=== PATIENT | female | born 1970 | race Caucasian/White ===

== ENCOUNTER 2016-08-15 22:03 | Inpatient (IN) ==
--- NOTE | 2016-08-15 22:15 | Emergency Department Note ---
Disposition Clinical Impression: COPD (chronic obstructive pulmonary disease), Fever, Tachycardia, Hypoxemia, Abnormal chest xray, Obesity, Diabetes, Systemic inflammatory response syndrome (SIRS), Morbid obesity with BMI of 60.0-69.9, adult, Hypertension, HLD ( hyperlipidemia), Sepsis, Non-cardiac chest pain, Headache Disposition: Admitted As Inpatient Referrals: Unassigned,Provider [Non-Partnered Physician] - Forms: ED Satisfaction Letter General Adult HPI - General Chief complaint: ED Chest Pain Stated complaint: linda chest pain Time Seen by Provider: 08/15/16 22:14 Source: patient Limitations: no limitations - History of Present Illness HPI Narrative: 46-year-old female with a history of COPD reports to the emergency department concerned with possible pneumonia. She has had a fever and a cough and describes chest tightness like a band around her chest. She has a history of previous pneumonia. There is no history of ear pain runny nose or sore throat. She wears oxygen only at night 2 L. There is no history of acute leg swelling coughing of blood or syncope. The patient has no history of CAD or CHF , no history of PE DVT or cancer. Take she had a recent stress test which was negative. The patient has had abdominal pain vomiting diarrhea or acute back pain. She describes a generalized headache which was not sudden onset, no trouble walking talking hearing seeing or speaking no unilateral arm weakness or numbness, no slurred speech or confusion. No convulsions. The patient that she might have pneumonia again so she came to the emergency department. She is known to be type II diabetic, she states her blood sugars have been high. Pain Scale: 8 - Related Data Home Medications Medication Instructions Recorded Confirmed Acetaminophen/Butalbital/Caffe 1 tab PO TID 12/07/15 06/23/16 [Fioricet] BuPROPion SR (12 HR) [Wellbutrin 150 mg PO BID 12/07/15 06/23/16 SR] Furosemide [Lasix] 80 mg PO TID 12/07/15 06/23/16 Gabapentin [Neurontin] 600 mg PO TID 12/07/15 06/23/16 Ibuprofen [Motrin] 800 mg PO Q8HR 12/07/15 06/23/16 Levothyroxine [Synthroid] 50 mcg PO DAILY 12/07/15 06/23/16 Melatonin 5 mg PO HS 12/07/15 06/23/16 Omeprazole 40 mg PO DAILY 12/07/15 06/23/16 Potassium Chloride [K-Tab ER] 20 meq PO QID 12/07/15 06/23/16 Topiramate [Topamax] 200 mg PO BID 12/07/15 06/23/16 TraZODone 150 mg PO HS 12/07/15 06/23/16 Doxepin [Sinequan] 150 mg PO HS 04/20/16 06/23/16 Fluticasone/Salmeterol [Advair 1 puff IH BID 06/21/16 06/23/16 250-50 Diskus] Metformin [Glucophage] 500 mg PO BIDWM 06/21/16 06/23/16 Simvastatin [Zocor] 20 mg PO HS 06/21/16 06/23/16 Previous Rx's Medication Instructions Recorded Albuterol Sulfate [Albuterol 1 puff IH Q4H PRN 90 Days 04/22/16 Inhaler] OxyCODONE/APAP 5/325 [Percocet 1 each PO Q4HR PRN #45 tablet 06/21/16 5/325 MG] Allergies Allergy/AdvReac Type Severity Reaction Status Date / Time aspirin AdvReac Gastrointestinal Verified 08/15/16 22:07 Upset naproxen AdvReac Gastrointestinal Verified 08/15/16 22:07 Upset All systems ED: reviewed and negative except as stated. 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 Absent: scleral icterus, conjunctival injection, miosis, mydriasis - ENT ENT exam: normal exam, normal oropharynx, mucous membranes moist, TM's normal bilaterally, normal external ear exam - Neck Neck exam: Present: normal inspection, full ROM, trachea midline. Absent: tenderness - Chest Chest inspection: Present: symmetric chest wall rise. Absent: tenderness - Respiratory Respiratory exam: Present: normal lung sounds bilaterally. Absent: respiratory distress, accessory muscle use, prolonged expiratory phase - Cardiovascular Cardiovascular exam: Present: regular rate, tachycardia - Abdominal Exam Abdominal exam: Present: soft, Non-Tender, normal bowel sounds. Absent: tenderness, distention, guarding, rebound, rigidity, pulsatile mass - Extremities Exam Extremities exam: Present: normal inspection, full ROM, normal capillary refill. Absent: tenderness, pedal edema, joint swelling, calf tenderness - Expanded Lower Extremity Exam Lower leg exam: Absent: Homans' sign Neurovascular/Tendon exam: Present: normal capillary refill. Absent: motor deficit, sensory deficit, tendon deficit, extremity cold to touch, pallor - Back Exam Back exam: Present: normal inspection, full ROM. Absent: tenderness, CVA tenderness (R), CVA tenderness (L), vertebral tenderness - Neurological Exam Neurological exam: Present: alert, oriented X3, CN II-XII intact. Absent: motor sensory deficit - Psychiatric Psychiatric exam: Present: normal affect, normal mood - Skin Skin exam: Present: warm, dry, intact, normal color. Absent: rash, cyanosis, diaphoresis, erythema, pallor, mottled Course Vital Signs Temperature 101 F H 08/15/16 22:07 Pulse Rate 120 08/15/16 22:07 Respiratory Rate 20 08/15/16 22:07 Blood Pressure 119/76 08/15/16 22:07 O2 Sat by Pulse Oximetry 93 08/15/16 22:07 Temperature 101 F H 08/15/16 22:07 Pulse Rate 108 08/16/16 00:15 Respiratory Rate 16 08/16/16 00:15 Blood Pressure 122/84 08/16/16 00:15 O2 Sat by Pulse Oximetry 92 08/16/16 00:15 Oxygen Delivery Oxygen Delivery Room Air Medical Decision Making - [facility] Narrative Medical decision making narrative: The patient complains of a cough and generalized chest and rib pain, she is also febrile and tachycardic with an abnormal chest x-ray. The patient has been somewhat hypoxemic in the ED dropping down to 88% on room air, oxygen was supplied. She has known history of COPD and usually only wears oxygen at night. The patient has no personal history of coronary artery disease DVT PE or cancer. Based on the patient's fever, elevated white count, tachycardia and likely acute infectious pulmonary pathology, I believe she meets sepsis criteria. Blood cultures are sent and antibiotics were given IV access and IV fluids were given. Additional testing include flu swab, and CTA chest to evaluate further for potential pulmonic pathology or possible PE. The patient' s EKG shows a sinus tachycardia troponin is negative. Based on the patient's multiple comorbidities including age, obesity, COPD, hypertension, hyperlipidemia, junction with hypoxemia, fever, tachycardia, I thought it would be appropriate to admit the patient to the hospital for further evaluation. The patient is currently stable. She has a history of chronic recurrent cephalgia and describes a headache, there is no history of rapid onset headache , neck stiffness or rash convulsion or confusion. No neurologic defects are reported or noted. The patient displays no meningismus. I do not see an acute skin rash on the exposed surfaces in the ED. I think the most likely source of infection is pulmonic, her abdominal exam is benign, no acute skin lesions appreciated, I do not think the patient has meningitis. I reviewed the case with the hospitalist on-call who has accepted the patient to their care. The patient is currently stable pending admission to the hospital for further diagnostic evaluation and treatment. - Lab Data Lab results reviewed: Yes I reviewed the patient's lab results. Result diagrams: 08/15/16 22:29 08/15/16 22:29 Lab Results 08/15/16 08/15/16 08/15/16 Range/Units 22:29 22:29 22:29 WBC 19.0 H (4.3-11.1) K/mcL RBC 4.74 (3.82-4.97) M/mcL Hgb 13.4 (11.5-15.4) g/dL Hct 41.3 (35.3-44.9) % MCV 87.1 (83.0-100.0) fL MCH 28.3 (28.0-33.3) pg MCHC 32.4 (31.6-35.5) g/dL RDW 16.2 H (11.5-14.5) % Plt Count 322 (140-400) K/mcL MPV 10.1 (9.4-12.4) fL Immature Gran % 1.3 (0-4) % Seg Neutrophils % 76.6 % Lymphocytes % 15.9 % Monocytes % 5.0 % Eosinophils % 0.9 % Basophils % 0.3 % Neutrophils # 14.6 H (1.6-8.9) K/mcL Lymphocytes # 3.0 (0.6-4.6) K/mcL Monocytes # 1.0 (0.0-1.3) K/mcL Eosinophils # 0.2 (0.0-0.6) K/mcL Basophils # 0.1 (0.0-0.2) K/mcL PT 11.3 (9.4-12.1) Seconds INR 1.0 APTT 35.2 (26.0-36.0) Seconds Sodium (136-145) mEq/L Potassium (3.5-4.5) mEq/L Chloride (98-109) mEq/L Carbon Dioxide (19-29) mEq/L BUN (7-20) mg/dL Creatinine (0.57-1.11) mg/dL Est GFR ( Amer) (> 60) Est GFR (Non-Af Amer) (> 60) BUN/Creatinine Ratio (6-26) Glucose (70-99) mg/dL Calculated Osmolality (280-300) Lactic Acid (0.5-2.2) mmol/L Calcium (8.6-10.8) mg/dL Magnesium (1.6-2.6) mg/dL Total Bilirubin (0.2-1.2) mg/dL Direct Bilirubin (0.0-0.5) mg/dL Indirect Bilirubin (0.0-1.2) mg/dL AST (5-34) Units/L ALT (0-55) Units/L Alkaline Phosphatase (38-126) Units/L Troponin I (0-0.03) ng/mL B-Natriuretic Peptide < 10 (0-100) pg/mL Serum Total Protein (6.0-8.3) g/dL Albumin (3.5-5.0) g/dL Globulin (2.4-3.5) g/dL Albumin/Globulin Ratio (1.1-2.2) Lipase (8-78) Units/L Urine Color (Yellow) Urine Clarity (Clear) Urine pH (5.0-8.0) pH Units Ur Specific [place] (1.010-1.025) Urine Protein (Neg-Trace) mg/dL Urine Glucose (UA) (Normal) mg/dL Urine Ketones (Negative) mg/dL Urine Blood (Negative) Urine Nitrite (Negative) Urine Bilirubin (Negative) Urine Urobilinogen (Normal) mg/dL Ur Leukocyte Esterase (Negative) Ur Culture Indicated? (NO) 08/15/16 08/15/16 08/15/16 Range/Units 22:29 22:29 22:29 WBC (4.3-11.1) K/mcL RBC (3.82-4.97) M/mcL Hgb (11.5-15.4) g/dL Hct (35.3-44.9) % MCV (83.0-100.0) fL MCH (28.0-33.3) pg MCHC (31.6-35.5) g/dL RDW (11.5-14.5) % Plt Count (140-400) K/mcL MPV (9.4-12.4) fL Immature Gran % (0-4) % Seg Neutrophils % % Lymphocytes % % Monocytes % % Eosinophils % % Basophils % % Neutrophils # (1.6-8.9) K/mcL Lymphocytes # (0.6-4.6) K/mcL Monocytes # (0.0-1.3) K/mcL Eosinophils # (0.0-0.6) K/mcL Basophils # (0.0-0.2) K/mcL PT (9.4-12.1) Seconds INR APTT (26.0-36.0) Seconds Sodium 137 (136-145) mEq/L Potassium 3.6 (3.5-4.5) mEq/L Chloride 102 (98-109) mEq/L Carbon Dioxide 22 (19-29) mEq/L BUN 9 (7-20) mg/dL Creatinine 0.78 (0.57-1.11) mg/dL Est GFR ( Amer) > 60 (> 60) Est GFR (Non-Af Amer) > 60 (> 60) BUN/Creatinine Ratio 12 (6-26) Glucose 137 H (70-99) mg/dL Calculated Osmolality 285 (280-300) Lactic Acid 1.9 (0.5-2.2) mmol/L Calcium 9.4 (8.6-10.8) mg/dL Magnesium 1.9 (1.6-2.6) mg/dL Total Bilirubin 0.2 (0.2-1.2) mg/dL Direct Bilirubin 0.1 (0.0-0.5) mg/dL Indirect Bilirubin 0.1 (0.0-1.2) mg/dL AST 12 (5-34) Units/L ALT 23 (0-55) Units/L Alkaline Phosphatase 128 H (38-126) Units/L Troponin I 0.00 (0-0.03) ng/mL B-Natriuretic Peptide (0-100) pg/mL Serum Total Protein 7.1 (6.0-8.3) g/dL Albumin 3.1 L (3.5-5.0) g/dL Globulin 4.0 H (2.4-3.5) g/dL Albumin/Globulin Ratio 0.8 L (1.1-2.2) Lipase 37 (8-78) Units/L Urine Color (Yellow) Urine Clarity (Clear) Urine pH (5.0-8.0) pH Units Ur Specific [place] (1.010-1.025) Urine Protein (Neg-Trace) mg/dL Urine Glucose (UA) (Normal) mg/dL Urine Ketones (Negative) mg/dL Urine Blood (Negative) Urine Nitrite (Negative) Urine Bilirubin (Negative) Urine Urobilinogen (Normal) mg/dL Ur Leukocyte Esterase (Negative) Ur Culture Indicated? (NO) 08/15/16 Range/Units 22:47 WBC (4.3-11.1) K/mcL RBC (3.82-4.97) M/mcL Hgb (11.5-15.4) g/dL Hct (35.3-44.9) % MCV (83.0-100.0) fL MCH (28.0-33.3) pg MCHC (31.6-35.5) g/dL RDW (11.5-14.5) % Plt Count (140-400) K/mcL MPV (9.4-12.4) fL Immature Gran % (0-4) % Seg Neutrophils % % Lymphocytes % % Monocytes % % Eosinophils % % Basophils % % Neutrophils # (1.6-8.9) K/mcL Lymphocytes # (0.6-4.6) K/mcL Monocytes # (0.0-1.3) K/mcL Eosinophils # (0.0-0.6) K/mcL Basophils # (0.0-0.2) K/mcL PT (9.4-12.1) Seconds INR APTT (26.0-36.0) Seconds Sodium (136-145) mEq/L Potassium (3.5-4.5) mEq/L Chloride (98-109) mEq/L Carbon Dioxide (19-29) mEq/L BUN (7-20) mg/dL Creatinine (0.57-1.11) mg/dL Est GFR ( Amer) (> 60) Est GFR (Non-Af Amer) (> 60) BUN/Creatinine Ratio (6-26) Glucose (70-99) mg/dL Calculated Osmolality (280-300) Lactic Acid (0.5-2.2) mmol/L Calcium (8.6-10.8) mg/dL Magnesium (1.6-2.6) mg/dL Total Bilirubin (0.2-1.2) mg/dL Direct Bilirubin (0.0-0.5) mg/dL Indirect Bilirubin (0.0-1.2) mg/dL AST (5-34) Units/L ALT (0-55) Units/L Alkaline Phosphatase (38-126) Units/L Troponin I (0-0.03) ng/mL B-Natriuretic Peptide (0-100) pg/mL Serum Total Protein (6.0-8.3) g/dL Albumin (3.5-5.0) g/dL Globulin (2.4-3.5) g/dL Albumin/Globulin Ratio (1.1-2.2) Lipase (8-78) Units/L Urine Color Yellow (Yellow) Urine Clarity Clear (Clear) Urine pH 7.5 (5.0-8.0) pH Units Ur Specific [place] 1.015 (1.010-1.025) Urine Protein Negative (Neg-Trace) mg/dL Urine Glucose (UA) Normal (Normal) mg/dL Urine Ketones Negative (Negative) mg/dL Urine Blood Negative (Negative) Urine Nitrite Negative (Negative) Urine Bilirubin Negative (Negative) Urine Urobilinogen Normal (Normal) mg/dL Ur Leukocyte Esterase Negative (Negative) Ur Culture Indicated? NO (NO) - Radiology Data Radiology results reviewed: Yes I reviewed the patient's radiology results.
[2016-08-15] MEDS ORDERED: Ipratropium/Albuterol Neb 3 ML IH ONE (22:26)
[2016-08-15] MEDS ORDERED: methylPREDNISolone 125 MG/2 ML VIAL IVP ONE (22:26)
[2016-08-15 22:41] LABS: Basophils # 0.1 K/mcL (0.0-0.2); Basophils % 0.3 %; Eosinophils # 0.2 K/mcL (0.0-0.6); Eosinophils % 0.9 %; Hematocrit 41.3 % (35.3-44.9); Hemoglobin 13.4 g/dL (11.5-15.4); Immature Granulocytes % 1.3 % (0-4); Lymphocytes % 15.9 %; Mean Corpuscular HGB Conc 32.4 g/dL (31.6-35.5); Mean Corpuscular Hemoglobin 28.3 pg (28.0-33.3); Mean Corpuscular Volume 87.1 fL (83.0-100.0); Mean Platelet Volume 10.1 fL (9.4-12.4); Neutrophils # 14.6 K/mcL (1.6-8.9); Platelet Count 322 K/mcL (140-400); Red Blood Count 4.74 M/mcL (3.82-4.97); Red Cell Distribution Width 16.2 % (11.5-14.5); Segmented Neutrophils % 76.6 %
[2016-08-15] MEDS: 0.9 % Sodium Chloride 1,000 ML IVC SCH ×2 (22:47→23:20)
[2016-08-15 22:48] LABS: Prothrombin Time 11.3 Seconds (9.4-12.1)
[2016-08-15 22:51] LABS: Activated Partial Thrombo Time 35.2 Seconds (26.0-36.0)
[2016-08-15 22:56] LABS: Alanine Aminotransferase 23 Units/L (0-55); Albumin 3.1 g/dL (3.5-5.0); Albumin/Globulin Ratio 0.8 (1.1-2.2); Alkaline Phosphatase 128 Units/L (38-126); Aspartate Amino Transferase 12 Units/L (5-34); BUN/Creatinine Ratio 12 (6-26); Bilirubin,Direct 0.1 mg/dL (0.0-0.5); Bilirubin,Indirect 0.1 mg/dL (0.0-1.2); Bilirubin,Total 0.2 mg/dL (0.2-1.2); Blood Urea Nitrogen 9 mg/dL (7-20); Calcium 9.4 mg/dL (8.6-10.8); Carbon Dioxide 22 mEq/L (19-29); Chloride 102 mEq/L (98-109); Glucose 137 mg/dL (70-99); Lipase 37 Units/L (8-78); Magnesium 1.9 mg/dL (1.6-2.6); Osmolality,Calculated 285 (280-300); Potassium 3.6 mEq/L (3.5-4.5); Sodium 137 mEq/L (136-145); Total Protein 7.1 g/dL (6.0-8.3); eGFR For African Americans > 60 (> 60); eGFR For Non-African Americans > 60 (> 60)
[2016-08-15 23:01] LABS: Bilirubin,Urine Negative (Negative); Blood,Urine Negative (Negative); Clarity,Urine Clear (Clear); Color,Urine Yellow (Yellow); Glucose,Urine (UA) Normal (Normal); Ketones,Urine Negative (Negative); Leukocyte Esterase,Urine Negative (Negative); Nitrite,Urine Negative (Negative); PH,Urine 7.5 pH Units (5.0-8.0); Protein,Urine Negative (Neg-Trace); Specific Gravity,Urine 1.015 (1.010-1.025); Urobilinogen,Urine Normal (Normal)
[2016-08-16] MEDS ORDERED: Levofloxacin 750 MG/150 ML 750 MG/150 ML BAG IVPB ONE (00:13)
[2016-08-16] MEDS ORDERED: Ketorolac 30 MG/ML VIAL IVP PRN ×2 (01:46→04:11)
[2016-08-16] MEDS ORDERED: Ondansetron 4 MG/2 ML VIAL IVP PRN (01:46)
[2016-08-16] MEDS ORDERED: Acetaminophen 325 MG TABLET PO PRN (01:46)
[2016-08-16] MEDS ORDERED: 0.9 % Sodium Chloride 1,000 ML IVC SCH ×2 (02:00→12:39)
--- NOTE | 2016-08-16 02:08 | Internal Med History&Physical ---
<Ana Pyle - Last Filed: 08/16/16 03:50> Date of Encounter: 08/16/16 Time of Encounter: 01:00 Assessment and Plan (1) Sepsis Current visit: Yes Status: Acute - Fever (101), tachycardia (as high as 120) and leukocytosis (WBC 19) on initial presentation. - Likely secondary to trachobronchitis given the significant upper respiratory symptoms but negative imagings for pneumonia. Doubt other source of infection such as UTI or abdominal infection given negative UA and lack of other symptoms. - Blood cultures pending. - Will obtain sputum culture with gram stain. Also check respiratory infection panel and urine antigens for Legionella and S. pneumoniae. - Continue hydration with IV NS. - Continue levofloxacin for trachobronchitis. - Closely monitor. Qualifiers: Sepsis type: sepsis due to unspecified organism Qualified Code(s): A41.9 - Sepsis, unspecified organism (2) Acute tracheobronchitis Current visit: Yes Status: Acute - Significant shortness of breath and productive cough with brown sputum production. - CXR and CTA chest don't suggest pneumonia. - Patient does have leukocytosis (WBC 19.0) likely suggestive of underlying infection. - Will obtain sputum culture with gram stain. Also check respiratory infection panel and urine antigens for Legionella and S. pneumoniae. - Continue levofloxacin. - Continue to monitor. (3) Acute exacerbation of chronic obstructive pulmonary disease (COPD) Current visit: Yes Status: Acute - Likely precipitated by smoking and/or current trachobronchitis. - Continue Solu-Medrol, bronchodilators scheduled & prn and supplemental oxygen. - Continue to monitor. (4) Tobacco abuse Current visit: Yes Status: Chronic - Patient still smokes 1 & 1/2 packs per day. - Smoking cessation counseling - Start nicotine patch. (5) Diabetes Current visit: Yes Status: Chronic - Patient reports recently diagnosed diabetes and is taking metformin at home. - Switch to insulin sliding scale during her hospital stay. Qualifiers: Diabetes mellitus type: type 2 Diabetes mellitus complication status: with unspecified complications Diabetes mellitus fci insulin use: without fci use Qualified Code(s): E11.8 - Type 2 diabetes mellitus with unspecified complications (6) DVT prophylaxis Current visit: No Status: Acute - SQ heparin. Internal Medicine - H&P: HPI Chief complaint: shortness of breath, productive cough and fever Admitted From: Emergency Dept Plans for Post Hospital Care: Home History of present illness: Ms. Becerra is a 46 year old female with COPD on 2L home oxygen only at night, DM, hyperlipidemia and fibromyalgia. Patient presented with shortness of breath , productive cough with brown sputum, chest tightness and fever (as high as 102.8 at home) for 2-3 days. Patient had similar presentation around [place] last year and was hospitalized for pneumonia therefore patient was prompted to come to [place] ED for further evaluation. Patient describes the chest tightness as "wearing a very tight bra" surrounding her upper chest and below the breasts and it's aggravated by cough. Patient also has wheezes, dizziness and some palpitation. Patient denies syncope, nausea, vomiting, diarrhea, abdominal pain , dysuria, skin rash/itchiness. Patient denies recent travel or sick contact. Patient is full code. In ED, patient was noted to have fever 101, tachycardia and leukocytosis (WBC 19.0). Patient received 1L NS, Duoneb, Solu-Medrol and levofloxacin. Patient will be admitted for further evaluation and management. Past Med Surg Social Fam HX - Past Medical History Medical history: arthritis, asthma, COPD, diabetes, fibromyalgia, GERD, hyperlipidemia, hypertension, migraine, osteoporosis, thyroid disease, other Psychiatric history: anxiety, bipolar, depression, other - Past Surgical History Surgical History: cholecystectomy, hysterectomy, other (Ovarian cyst removal, right rotator cuff repair) - Social History Smoking Status: Current every day smoker Packs per day: 1.5 PPD since age 12 Smokeless Tobacco Status: No Alcohol use: none Drug use: none - Family History Sister Living Status: Still Living Hx Family Cardiac Disorders: Yes (DE) Hx Family Endocrine Disorder: Yes (DM) Father Living Status: Still Living Hx Family Cardiac Disorders: Yes (DE) Hx Family Respiratory Disorders: Yes Mother Living Status: Hx Family Cardiac Disorders: Yes (Heart disease) Hx Family Cancer: Yes (lung cancer) Internal Medicine - H&P: Meds Acetaminophen/Butalbital/Caffe [Fioricet] 1 tab PO TID 12/07/15 [History] BuPROPion SR (12 HR) [Wellbutrin SR] 150 mg PO BID 12/07/15 [History] Furosemide [Lasix] 80 mg PO TID 08/14/16 [History] Gabapentin [Neurontin] 600 mg PO TID 12/07/15 [History] Ibuprofen [Motrin] 800 mg PO Q8HR 12/07/15 [History] Levothyroxine [Synthroid] 50 mcg PO DAILY 12/07/15 [History] Melatonin 5 cap PO HS MDD 20 12/07/15 [History] Omeprazole 40 mg PO DAILY 12/07/15 [History] Potassium Chloride [K-Tab ER] 20 meq PO 6XD 12/07/15 [History] Topiramate [Topamax] 200 mg PO BID 12/07/15 [History] TraZODone 150 mg PO HS 12/07/15 [History] Doxepin [Sinequan] 150 mg PO HS 04/20/16 [History] Albuterol Sulfate [Albuterol Inhaler] 1 puff IH Q4H PRN 90 Days 04/22/16 [Rx] Fluticasone/Salmeterol [Advair 250-50 Diskus] 1 puff IH BID 06/21/16 [History] Metformin [Glucophage] 500 mg PO BIDWM 06/21/16 [History] Simvastatin [Zocor] 20 mg PO HS 06/21/16 [History] Allergies aspirin Adverse Reaction (Verified 08/15/16 22:07) Gastrointestinal Upset naproxen Adverse Reaction (Verified 08/15/16 22:07) Gastrointestinal Upset All Systems PM: A 10-system review of systems was performed and is negative for pertinent findings except as documented above in the HPI. - Constitutional Constitutional: fever(s), weight gain (Patient reports weight difference of 25 lb on two different scales with one week apart.), no anorexia - EENT Eyes: no change in vision Ears: no decreased hearing Nose, mouth and throat: no dysphagia, no odynophagia - Cardiovascular Cardiovascular ROS IM: lightheadedness, palpitations, no syncope - Respiratory Respiratory: as per HPI, cough, dyspnea, excessive phlegm production, change in phlegm color (Brown color), no hemoptysis - Gastrointestinal Gastrointestinal: no abdominal pain, no diarrhea, no hematochezia, no melena, no nausea, no vomiting - Genitourinary Genitourinary: no difficulty urinating, no dysuria, no hematuria - Musculoskeletal Musculoskeletal ROS IM: arthralgias (Chronic shoulder pain), no myalgias - Integumentary Integumentary IM: no pruritus, no rash - Neurological Neurological ROS: no focal weakness, no numbness, no tingling - Hematologic/Lymphatic Hematologic/Lymphatic: no easy bleeding, no easy bruising - Constitutional Vitals: Temp Pulse Resp BP Pulse Ox 101 F H 108 18 126/88 92 08/15/16 22:07 08/16/16 00:15 08/16/16 00:53 08/16/16 00:53 08/16/16 00:15 General appearance: Present: cooperative, A&O X 3, no acute distress, answers questions appropriately - Head Head exam: Present: atraumatic, normocephalic - Eye Eye exam: Present: EOMI, PERRL, conjuntiva pink, sclera anicteric - Neck Neck exam general surgery: Present: supple, trachea midline. Absent: lymphadenopathy - Respiratory Respiratory exam: Present: decreased breath sounds, wheezes. Absent: accessory muscle use, rales, rhonchi - Cardiovascular Cardiovascular exam: Present: +S1, +S2, tachycardia. Absent: diastolic murmur, gallop, rubs, systolic murmur - GI/Abdominal GI/Abdominal exam: Present: normal bowel sounds, soft, no peritoneal signs. Absent: tenderness - Extremities Exam Extremities exam: Present: pedal edema (Mild), warm, radial pulses palpable and symetrical. Absent: calf tenderness, cyanotic - Neurological Exam Neurological exam: Present: CN II-XII intact, oriented X3, no focal deficits. Absent: pronater drift, facial droop, speech deficit - Skin Skin exam: Present: dry, intact, warm Internal Med - H&P Results - Labs CBC & Chem 7: 08/15/16 22:29 08/15/16 22:29 Labs: Short CBC 08/15/16 Range/Units 22:29 WBC 19.0 H (4.3-11.1) K/mcL Hgb 13.4 (11.5-15.4) g/dL Hct 41.3 (35.3-44.9) % Plt Count 322 (140-400) K/mcL Neutrophils # 14.6 H (1.6-8.9) K/mcL BMP 08/15/16 Range/Units 22:29 Sodium 137 (136-145) mEq/L Potassium 3.6 (3.5-4.5) mEq/L Chloride 102 (98-109) mEq/L Carbon Dioxide 22 (19-29) mEq/L BUN 9 (7-20) mg/dL Creatinine 0.78 (0.57-1.11) mg/dL Glucose 137 H (70-99) mg/dL Calcium 9.4 (8.6-10.8) mg/dL Cardiac Enzymes 08/15/16 Range/Units 22:29 Troponin I 0.00 (0-0.03) ng/mL Liver Function 08/15/16 Range/Units 22:29 Total Bilirubin 0.2 (0.2-1.2) mg/dL Direct Bilirubin 0.1 (0.0-0.5) mg/dL AST 12 (5-34) Units/L ALT 23 (0-55) Units/L Alkaline Phosphatase 128 H (38-126) Units/L Albumin 3.1 L (3.5-5.0) g/dL Urine 08/15/16 Range/Units 22:47 Urine Color Yellow (Yellow) Urine Clarity Clear (Clear) Urine pH 7.5 (5.0-8.0) pH Units Ur Specific [place] 1.015 (1.010-1.025) Urine Protein Negative (Neg-Trace) mg/dL Urine Glucose (UA) Normal (Normal) mg/dL - EKG Data -: EKG Interpreted by Myself EKG shows normal: sinus rhythm Rate: tachycardia - EKG Data Prior EKG available for review: yes When compared to previous EKG: there is no significant change EKG comments: 08/16/16 03:57 HR 115, ID 150, QRS 82, sinus tachycardia, no significant ischemic change compared to prior EKG in 2016. - Impressions Impressions Chest X-Ray 08/15/16 23:21 IMPRESSION: Findings suggest congestive heart failure D/ / José Antonio Gonzalez MD / José Antonio Gonzalez MD Interpreting Provider: José Antonio Gonzalez MD Chest CTA 08/16/16 00:15 IMPRESSION: No evidence for pulmonary emboli. Small nonspecific perihilar adenopathy may be reactive in nature. D/ / Bala Potts MD / Bala Potts MD Interpreting Provider: Bala Potts MD <Jessica Gaspar - Last Filed: 08/16/16 04:41> Date of Encounter: 08/16/16 Internal Medicine - H&P: HPI History of present illness: Ms. Becerra is a 46 year old female All Systems PM: A 10-system review of systems was performed and is negative for pertinent findings except as documented above in the HPI. - Constitutional Vitals: Temp Pulse Resp BP Pulse Ox 98.7 F 103 21 113/71 93 08/16/16 02:14 08/16/16 02:14 08/16/16 02:14 08/16/16 02:14 08/16/16 02:14 Internal Med - H&P Results - Labs CBC & Chem 7: 08/15/16 22:29 08/15/16 22:29 - Attending Attestation I performed history and physical examination of the patient and discussed management with resident/Forklift Mechanic. I reviewed the resident/ Interns note and agree with the documented findings and plan of care. 46 Y/F with h/o COPD, current smoker; chronic resp failure on home O2 at night. Presents with shortness of breath, cough with yellow sputum. Fever with temp of 102F at home. She reports that she has bra that is smaller for her size and is causing pressure / pain around the chest, which is worse on coughing. O/E: Bilateral expiratory wheeze; cardiac: Regular rate and rhythm; abdomen soft and nontender. EKG personally reviewed by me shows sinus tachycardia with heart rate of 115. Chest x-ray and CT scan of the chest were personally reviewed by me. No evidence of pneumonia. Labs show WBC of 19; [id number]. Urinalysis is negative for UTI. A/P: Acute tracheobronchitis/acute exacerbation of COPD/sepsis/acute/ chronic respiratory failure: Treated with bronchodilators, Solu-Medrol, levofloxacin, IV fluids. Chest pain is non cardiac.
[2016-08-16] MEDS ORDERED: *HR* Dextrose 50 % in Water (Syg) 50 ML SYRINGE IVP PRN (02:34)
[2016-08-16] MEDS ORDERED: Dextrose Gel 15 GM PO PRN ×2 (02:34)
[2016-08-16] MEDS ORDERED: D5% in Water 1,000 ML IVC PRN (02:34)
[2016-08-16] MEDS ORDERED: Acetaminophen/Butalbital/CaffeineTABLET PO PRN ×2 (03:48→12:53)
[2016-08-16] MEDS ORDERED: Ipratropium/Albuterol Neb 3 ML IH PRN (04:08)
[2016-08-16] MEDS ORDERED: Albuterol 2.5 MG/3 ML NEBULIZER IH PRN (04:09)
[2016-08-16] MEDS ORDERED: Ipratropium/Albuterol Neb 3 ML IH SCH (04:15)
[2016-08-16] MEDS: Ipratropium/Albuterol Neb 3 ML IH SCH ×4 (04:52→19:25)
[2016-08-16] MEDS: *HR* Heparin 5,000 UNIT/ML VIAL SQ SCH ×3 (05:37→21:24)
[2016-08-16 05:38] LABS: Basophils # 0.1 K/mcL (0.0-0.2); Basophils % 0.3 %; Eosinophils % 0.1 %; Hematocrit 40.2 % (35.3-44.9); Immature Granulocytes % 1.6 % (0-4); Lymphocytes # 1.1 K/mcL (0.6-4.6); Lymphocytes % 6.2 %; Mean Corpuscular HGB Conc 32.3 g/dL (31.6-35.5); Mean Corpuscular Volume 89.7 fL (83.0-100.0); Mean Platelet Volume 10.7 fL (9.4-12.4); Monocytes # 0.3 K/mcL (0.0-1.3); Monocytes % 1.5 %; Neutrophils # 15.6 K/mcL (1.6-8.9); Platelet Count 319 K/mcL (140-400); Red Blood Count 4.48 M/mcL (3.82-4.97); Red Cell Distribution Width 16.7 % (11.5-14.5); Segmented Neutrophils % 90.3 %
[2016-08-16 05:43] LABS: BUN/Creatinine Ratio 11 (6-26); Blood Urea Nitrogen 8 mg/dL (7-20); Calcium 8.9 mg/dL (8.6-10.8); Carbon Dioxide 18 mEq/L (19-29); Chloride 105 mEq/L (98-109); Glucose 229 mg/dL (70-99); Osmolality,Calculated 288 (280-300); Potassium 3.8 mEq/L (3.5-4.5); Sodium 136 mEq/L (136-145); eGFR For African Americans > 60 (> 60); eGFR For Non-African Americans > 60 (> 60)
[2016-08-16] MEDS ORDERED: MethylPREDNISolone 40 MG/ML VIAL IVP SCH (08:00)
[2016-08-16] MEDS: Nicotine 21 MG PATCH.TD24 TD SCH (08:15)
[2016-08-16] MEDS: Insulin LISPRO 300 UNITS/3 ML VIAL SQ SCH ×4 (08:30→21:22)
[2016-08-16] MEDS ORDERED: predniSONE 20 MG TABLET PO SCH (09:00)
[2016-08-16] MEDS: Gabapentin 300 MG CAPSULE PO SCH ×3 (11:20→21:17)
[2016-08-16] MEDS: Topiramate 100 MG TABLET PO SCH ×2 (11:20→21:19)
[2016-08-16] MEDS: BuPROPion SR (12 HR) 150 MG TABLET PO SCH ×2 (11:21→21:19)
[2016-08-16] MEDS: Nystatin POWDER 30 GM BOTTLE TP SCH ×3 (11:26→21:24)
[2016-08-16] MEDS ORDERED: Acetaminophen/Butalbital/CaffeineTABLET PO SCH (11:45)
[2016-08-16] MEDS: Acetaminophen/Butalbital/CaffeineTABLET PO SCH ×2 (15:02→21:16)
--- NOTE | 2016-08-16 19:52 | Electrocardiograph Report ---
[address] [address] Test Date: 2016-08-15 Pat Name: Sarah Becerra Department: 105 Room: 3A33 Gender: F Etl Bi Developer: CRISTIANO : 1970 Requested By: Rogerio Remy Order Number: [id number] Reading MD: Reji Jack MD Measurements Intervals [place] Rate: 115 P: 55 VT: 150 QRS: 65 QRSD: 82 T: 35 QT: 281 QTc: 349 Interpretive Statements SINUS TACHYCARDIA LEFT ATRIAL ENLARGEMENT LOW QRS VOLTAGE IN PRECORDIAL LEADS Electronically Signed On 08-16-2016 19:50:03 EDT by Reji Jack MD
[2016-08-16] MEDS: Melatonin 3 MG TABLET PO SCH (21:17)
[2016-08-16] MEDS: traZODone 50 MG TABLET PO SCH (21:19)
[2016-08-16] MEDS: Albuterol 2.5 MG/3 ML NEBULIZER IH PRN (21:35)
[2016-08-16] MEDS ORDERED: Levofloxacin 750 MG/150 ML 750 MG/150 ML BAG IVPB SCH (23:55)
[2016-08-17] MEDS: Ipratropium/Albuterol Neb 3 ML IH SCH ×7 (00:47→20:14)
[2016-08-17] MEDS ORDERED: traMADol 50 MG TABLET PO ONE ×2 (03:29→11:47)
[2016-08-17 05:00] LABS: Basophils % 0.3 %; Eosinophils # 0.1 K/mcL (0.0-0.6); Eosinophils % 0.5 %; Hematocrit 34.6 % (35.3-44.9); Immature Granulocytes % 2.4 % (0-4); Lymphocytes # 4.2 K/mcL (0.6-4.6); Lymphocytes % 31.5 %; Mean Corpuscular HGB Conc 31.8 g/dL (31.6-35.5); Mean Corpuscular Hemoglobin 28.6 pg (28.0-33.3); Mean Corpuscular Volume 89.9 fL (83.0-100.0); Mean Platelet Volume 10.7 fL (9.4-12.4); Monocytes # 0.9 K/mcL (0.0-1.3); Neutrophils # 7.7 K/mcL (1.6-8.9); Platelet Count 285 K/mcL (140-400); Red Blood Count 3.85 M/mcL (3.82-4.97); Red Cell Distribution Width 16.8 % (11.5-14.5); Segmented Neutrophils % 58.3 %
[2016-08-17 05:10] LABS: BUN/Creatinine Ratio 20 (6-26); Blood Urea Nitrogen 14 mg/dL (7-20); Calcium 8.7 mg/dL (8.6-10.8); Carbon Dioxide 24 mEq/L (19-29); Chloride 110 mEq/L (98-109); Glucose 141 mg/dL (70-99); Osmolality,Calculated 297 (280-300); Potassium 3.6 mEq/L (3.5-4.5); Sodium 142 mEq/L (136-145); eGFR For African Americans > 60 (> 60); eGFR For Non-African Americans > 60 (> 60)
[2016-08-17] MEDS: Albuterol 2.5 MG/3 ML NEBULIZER IH PRN (05:38)
[2016-08-17] MEDS: *HR* Heparin 5,000 UNIT/ML VIAL SQ SCH ×3 (06:23→22:24)
[2016-08-17] MEDS: Acetaminophen/Butalbital/CaffeineTABLET PO SCH ×3 (07:58→22:21)
[2016-08-17] MEDS: Gabapentin 300 MG CAPSULE PO SCH ×3 (07:58→22:22)
[2016-08-17] MEDS: Nicotine 21 MG PATCH.TD24 TD SCH (07:59)
[2016-08-17] MEDS: BuPROPion SR (12 HR) 150 MG TABLET PO SCH ×2 (07:59→22:23)
[2016-08-17] MEDS: Topiramate 100 MG TABLET PO SCH ×2 (07:59→22:22)
[2016-08-17] MEDS: Insulin LISPRO 300 UNITS/3 ML VIAL SQ SCH ×4 (08:01→22:50)
[2016-08-17] MEDS ORDERED: MethylPREDNISolone 40 MG/ML VIAL IVP SCH (09:00)
--- NOTE | 2016-08-17 11:46 | Internal Med Progress Note ---
<ValdezHerminia Aldair - Last Filed: 08/17/16 17:18> Date of Encounter: 08/17/16 Time of Encounter: 10:45 - Assessment and plan (1) Sepsis Current Visit: Yes Status: Acute Assessment and plan: Patient is clinically improving Wheezing is still present today Leukocytosis decreased to 13.2 from 17.2 yesterday Patient met criteria for sepsis upon admission Fever (101), tachycardia (120), and leukocytosis (WBC 19) CXR negative for acute process Blood cultures 08/15/16 negative to this point Legionella and S. pneumonia antigens negative Qualifiers: Sepsis type: sepsis due to unspecified organism Qualified Code(s): A41.9 - Sepsis, unspecified organism (2) Acute and chronic respiratory failure with hypoxia Current Visit: No Status: Acute Assessment and plan: Patient with known history of COPD Improving clinically Repeat CXR today demonstrates no acute process Will stop Solu-medrol today. Start prednisone 40mg po. Continue scheduled nebs Continue Levaquin (day#2) Continue supplemental O2 Will perform nocturnal oximetry tonight (3) Acute exacerbation of chronic obstructive pulmonary disease (COPD) Current Visit: Yes Status: Acute Assessment and plan: Continue plan as above (4) Diabetes mellitus type 2 in obese Current Visit: Yes Status: Acute Assessment and plan: Insulin medium-dose SS correction Monitor closely (5) Tobacco abuse Current Visit: Yes Status: Chronic Assessment and plan: Nicoderm TD Smoking cessation discussed with patient and her (6) DVT prophylaxis Current Visit: No Status: Acute Assessment and plan: Heparin TID - Subjective Interval history: Patient upset this morning because, she states, she did not get awakened from sleep to have 2am breathing treatment. Patient continues to have wheezing, dyspnea, and chest pressure. She is angry that she complained of pain in her left side, but has only received toradol for the pain. Patient did have an episode of hypoxemia and tachycardia at approximately 05:00. - Constitutional Vitals: Temp Pulse Resp BP Pulse Ox 97.9 F 96 16 138/73 94 08/17/16 11:02 08/17/16 11:02 08/17/16 11:02 08/17/16 11:02 08/17/16 11:02 General appearance: Present: cooperative, A&O X 3, morbidly obese, no acute distress, answers questions appropriately - Head Head exam: Present: atraumatic, normocephalic - Eye Eye exam: Present: EOMI, PERRL, conjuntiva pink, sclera anicteric - Neck Neck exam general surgery: Present: supple, trachea midline - Respiratory Respiratory exam: Present: chest wall tenderness (To left chest), prolonged expiratory phase, wheezes (diffuse wheezing in all lung andres). Absent: accessory muscle use, rales, rhonchi Additional comments: Patient speaking in short sentences and taking quick breaths between words. - Cardiovascular Cardiovascular exam: Present: RRR, +S1, +S2. Absent: diastolic murmur, gallop, rubs, systolic murmur - GI/Abdominal GI/Abdominal exam: Present: normal bowel sounds, soft, no peritoneal signs. Absent: distended, tenderness - Extremities Exam Extremities exam: Present: pedal edema (1+ pedal edema unchanged from yesterday) , warm, radial pulses palpable and symetrical. Absent: calf tenderness, cyanotic - Neurological Exam Neurological exam: Present: CN II-XII intact, oriented X3. Absent: facial droop , speech deficit - Skin Skin exam: Present: dry, intact Internal Medicine: Result - Labs CBC & Chem 7: 08/17/16 04:03 08/17/16 04:03 Labs: Short CBC 08/17/16 Range/Units 04:03 WBC 13.2 H (4.3-11.1) K/mcL Hgb 11.0 L D (11.5-15.4) g/dL Hct 34.6 L (35.3-44.9) % Plt Count 285 (140-400) K/mcL Neutrophils # 7.7 (1.6-8.9) K/mcL BMP 08/17/16 04:03 Sodium 142 Potassium 3.6 Chloride 110 H Carbon Dioxide 24 BUN 14 Creatinine 0.69 Glucose 141 H Calcium 8.7 Cardiac Enzymes 08/17/16 Range/Units 10:49 Troponin I 0.00 (0-0.03) ng/mL - ABG Interpretation ABG results: PT/INR, D-dimer PT 11.3 Seconds (9.4-12.1) 08/15/16 22:29 - Impressions Impressions Chest X-Ray 08/17/16 10:18 IMPRESSION: 1. Emphysema. 2. No focal lung infiltrate. D/ / 08/17/2016 11:16:58 Morgan Monte MD / alla Interpreting Provider: Morgan Monte MD Consult Discharge Plan - Plan Referrals: Juan Edgar DO [Primary Care Provider] - <Hernan Julien - Last Filed: 08/17/16 18:31> Date of Encounter: 08/17/16 - Constitutional Vitals: Temp Pulse Resp BP Pulse Ox 98.1 F 89 18 125/75 94 08/17/16 14:49 08/17/16 14:49 08/17/16 16:58 08/17/16 14:49 08/17/16 16:58 Internal Medicine: Result - Labs CBC & Chem 7: 08/17/16 04:03 08/17/16 04:03 Labs: Short CBC 08/17/16 Range/Units 04:03 WBC 13.2 H (4.3-11.1) K/mcL Hgb 11.0 L D (11.5-15.4) g/dL Hct 34.6 L (35.3-44.9) % Plt Count 285 (140-400) K/mcL Neutrophils # 7.7 (1.6-8.9) K/mcL BMP 08/17/16 04:03 Sodium 142 Potassium 3.6 Chloride 110 H Carbon Dioxide 24 BUN 14 Creatinine 0.69 Glucose 141 H Calcium 8.7 Cardiac Enzymes 08/17/16 Range/Units 10:49 Troponin I 0.00 (0-0.03) ng/mL - ABG Interpretation ABG results: PT/INR, D-dimer PT 11.3 Seconds (9.4-12.1) 08/15/16 22:29 - Impressions Impressions Chest X-Ray 08/17/16 10:18 IMPRESSION: 1. Emphysema. 2. No focal lung infiltrate. D/ / 08/17/2016 11:16:58 Morgan Monte MD / alla Interpreting Provider: Morgan Monte MD - Attending Attestation I examined this patient and my medical decision-making was reviewed with the Resident Physician, Dr Herminia Valdez. I agree with the documented findings, disposition and treatment plan as described except to the extent set forth below. On exam she is in no acute distress heart is regular S1-S2. Lungs are with diminished bilateral breath sounds with no adventitious sounds. Abdomen is obese and soft. I have discussed smoking cessation with her and I emphasized the benefits of quitting smoking. We will explore the possibility of nicotine replacement therapy on discharge. Check ambulatory oxygen saturation on room air to determine if she qualifies for continuous home oxygen. We will switch to oral steroids and antibiotics. Plan for discharge tomorrow if she continues to improve.
[2016-08-17] MEDS: *HR* OxyCODONE Immed Rel 5 MG TABLET PO PRN ×2 (15:16→22:23)
[2016-08-17] MEDS: Albuterol 2.5 MG/3 ML NEBULIZER IH SCH ×2 (17:01→20:21)
[2016-08-17] MEDS: Nystatin POWDER 30 GM BOTTLE TP SCH ×3 (18:40→22:54)
[2016-08-17] MEDS: Melatonin 3 MG TABLET PO SCH (22:23)
[2016-08-17] MEDS: traZODone 50 MG TABLET PO SCH (22:23)
[2016-08-18] MEDS: Ipratropium/Albuterol Neb 3 ML IH SCH ×4 (00:16→11:10)
[2016-08-18] MEDS: Albuterol 2.5 MG/3 ML NEBULIZER IH SCH ×4 (00:18→11:10)
[2016-08-18 04:24] LABS: Basophils # 0.1 K/mcL (0.0-0.2); Basophils % 0.9 %; Eosinophils # 0.1 K/mcL (0.0-0.6); Eosinophils % 0.8 %; Hematocrit 35.1 % (35.3-44.9); Hemoglobin 11.1 g/dL (11.5-15.4); Immature Granulocytes % 4.1 % (0-4); Lymphocytes # 4.4 K/mcL (0.6-4.6); Mean Corpuscular HGB Conc 31.6 g/dL (31.6-35.5); Mean Corpuscular Hemoglobin 28.3 pg (28.0-33.3); Mean Corpuscular Volume 89.5 fL (83.0-100.0); Mean Platelet Volume 9.9 fL (9.4-12.4); Monocytes # 0.9 K/mcL (0.0-1.3); Monocytes % 6.9 %; Neutrophils # 6.6 K/mcL (1.6-8.9); Platelet Count 297 K/mcL (140-400); Red Blood Count 3.92 M/mcL (3.82-4.97); Segmented Neutrophils % 52.3 %
[2016-08-18] MEDS: *HR* OxyCODONE Immed Rel 5 MG TABLET PO PRN ×2 (04:36→10:31)
[2016-08-18 04:56] LABS: BUN/Creatinine Ratio 24 (6-26); Blood Urea Nitrogen 17 mg/dL (7-20); Calcium 8.8 mg/dL (8.6-10.8); Carbon Dioxide 23 mEq/L (19-29); Chloride 110 mEq/L (98-109); Glucose 108 mg/dL (70-99); Osmolality,Calculated 294 (280-300); Potassium 3.9 mEq/L (3.5-4.5); Sodium 141 mEq/L (136-145); eGFR For African Americans > 60 (> 60); eGFR For Non-African Americans > 60 (> 60)
[2016-08-18] MEDS: *HR* Heparin 5,000 UNIT/ML VIAL SQ SCH (06:44)
[2016-08-18 07:30] VITALS: BP 117/72
[2016-08-18] MEDS: Nicotine 21 MG PATCH.TD24 TD SCH (08:16)
[2016-08-18] MEDS: BuPROPion SR (12 HR) 150 MG TABLET PO SCH (08:16)
[2016-08-18] MEDS: Gabapentin 300 MG CAPSULE PO SCH (08:17)
[2016-08-18] MEDS: Acetaminophen/Butalbital/CaffeineTABLET PO SCH (08:17)
[2016-08-18] MEDS: Topiramate 100 MG TABLET PO SCH (08:17)
[2016-08-18] MEDS: Insulin LISPRO 300 UNITS/3 ML VIAL SQ SCH (08:18)
[2016-08-18] MEDS ORDERED: predniSONE 20 MG TABLET PO SCH (09:00)
[2016-08-18] MEDS ORDERED: levoFLOXacin 750 MG TABLET PO SCH (09:00)
--- NOTE | 2016-08-18 09:18 | Discharge Summary ---
<Herminia Valdez - Last Filed: 08/18/16 08:53> Date of Encounter: 08/18/16 Time of Encounter: 08:53 - Discharge Diagnosis (1) Sepsis Priority: Primary Status: Acute Qualifiers: Sepsis type: sepsis due to unspecified organism Qualified Code(s): A41.9 - Sepsis, unspecified organism (2) Acute and chronic respiratory failure with hypoxia Priority: Primary Status: Acute (3) Acute exacerbation of chronic obstructive pulmonary disease (COPD) Priority: Primary Status: Acute (4) Diabetes mellitus type 2 in obese Priority: Secondary Status: Chronic (5) Tobacco abuse Priority: Secondary Status: Chronic (6) DVT prophylaxis Priority: Secondary Status: Acute - Discharge Medications Prescriptions: Ipratropium/Albuterol Neb [Duoneb] 3 ml IH [id number] 10 Days Doxycycline 100 mg PO BID #14 capsule Fluconazole [Diflucan] 150 mg PO DAILY #1 tab GuaiFENesin ER [Mucinex] 600 mg PO BID #10 tbbp.12hr Miscellaneous Medical Supply [Attachment Set] 1 each MC AD #1 miscell Miscellaneous Medical Supply [Attachment Set] 1 each MC AD #1 miscell Nicotine Patch [Nicoderm] 21 mg TD DAILY #30 patch.[id number] Nystatin Cream [Mycostatin Cream] 1 appl TP BID #1 tube PredniSONE [Prednisone] 10 mg PO AD #30 tab.ds.pk Tramadol HCl [Ultram] 50 mg PO DAILY #5 tab Home Medications: Acetaminophen/Butalbital/Caffe [Fioricet] 1 - 2 tab PO TID 12/07/15 [History] BuPROPion SR (12 HR) [Wellbutrin SR] 150 mg PO BID 12/07/15 [History] Furosemide [Lasix] 80 mg PO TID 12/07/15 [History] Gabapentin [Neurontin] 600 mg PO TID 12/07/15 [History] Ibuprofen [Motrin] 800 mg PO Q8HR 12/07/15 [History] Levothyroxine [Synthroid] 50 mcg PO DAILY 12/07/15 [History] Melatonin 5 cap PO HS MDD 20 12/07/15 [History] Omeprazole 40 mg PO DAILY 12/07/15 [History] Potassium Chloride [K-Tab ER] 20 meq PO QID 12/07/15 [History] Topiramate [Topamax] 200 mg PO BID 12/07/15 [History] TraZODone 150 mg PO HS 12/07/15 [History] Doxepin [Sinequan] 25 mg PO HS 04/20/16 [History] Albuterol Sulfate [Albuterol Inhaler] 1 puff IH Q4H PRN 90 Days 04/22/16 [Rx] Fluticasone/Salmeterol [Advair 250-50 Diskus] 1 puff IH BID 06/21/16 [History] Metformin [Glucophage] 500 mg PO BIDWM 06/21/16 [History] Simvastatin [Zocor] 20 mg PO HS 06/21/16 [History] Acetaminophen/Butalbital/Caffe [Fioricet] 2 each PO TID tablet 08/18/16 [Rx] Doxycycline 100 mg PO BID #14 capsule 08/18/16 [Rx] Fluconazole [Diflucan] 150 mg PO DAILY #1 tab 08/18/16 [Rx] GuaiFENesin ER [Mucinex] 600 mg PO BID #10 tbbp.12hr 08/18/16 [Rx] Ipratropium/Albuterol Neb [Duoneb] 3 ml IH [id number] 10 Days 08/18/16 [Rx] Miscellaneous Medical Supply [Attachment Set] 1 each MC AD #1 miscell 08/18/16 [ Rx] Miscellaneous Medical Supply [Attachment Set] 1 each MC AD #1 miscell 08/18/16 [ Rx] Nicotine Patch [Nicoderm] 21 mg TD DAILY #30 patch.td24 08/18/16 [Rx] Nystatin Cream [Mycostatin Cream] 1 appl TP BID #1 tube 08/18/16 [Rx] Nystatin POWDER [Nystop] 1 appl TP TID bottle 08/18/16 [Rx] OxyCODONE Immed Rel [Roxicodone 5 MG] 5 mg PO Q6HR PRN #30 tablet 08/18/16 [Rx] PredniSONE [Prednisone] 10 mg PO AD #30 tab.ds.pk 08/18/16 [Rx] Tramadol HCl [Ultram] 50 mg PO DAILY #5 tab 08/18/16 [Rx] Allergies/Adverse Reactions: Allergies aspirin Adverse Reaction (Verified 08/15/16 22:07) Gastrointestinal Upset naproxen Adverse Reaction (Verified 08/15/16 22:07) Gastrointestinal Upset Procedures/tests Complete & Pending: Procedures Performed prior 72 hours Category Date Time Status ECG 12 lead ECG [ECG] Urgent Y 08/17/16 10:17 Ordered Date of admission: 08/16/16 04:12 Primary care physician: Juan Edgar, Consults: 08/17/16 17:14 Consult to Respiratory Therapy [CONS] Routine Reason for Consult: Nocturnal Pulse oximetry. Please keep patient on 2L O2 during measurment. Call Completed: No Discharging clinician: Hernan Julien Anticipated date of discharge: 08/18/16 - Patient Status Disposition: Home, Self-Care Condition: Fair Functional capacity at discharge: independent ambulation Overall status at discharge: patient is progressing back to baseline - Discharge Instructions Instructions: Using Oxygen at Home (DC), Chronic Obstructive Pulmonary Disease (DC), Hypoxemia (DC) Follow Up With: Juan Edgar, DO [Primary Care Provider] - 08/25/16 11:00 am - Diet and Activity Activity: increase activity as tolerated Diet: diabetic diet Hospital course: Ms. Becerra is a 46 year old female with COPD on 2L home oxygen only at night. Past medical history is significant for DM, hyperlipidemia, fibromyalgia, smoking use disorder. Patient presented with 2-3 day history of shortness of breath, cough productive of brown sputum, chest tightness, subjective fever (as high as 102.8 at home). Upon presentation to hospital, patient met Sepsis criteria as she was found to have fever (101), tachycardia (as high as 120) and leukocytosis (WBC 19). CXR and CTA were negative for acute cardiopulmonary process. Patient was treated for tracheobronchitis and COPD exacerbation with steroids, duonebs, Levaquin, O2 supplementation. Blood cultures 08/15/16 are negative to date. Patient was negative for legionella and Strep. pneumoniae antigens. For the COPD/tracheobronchitis, patient will be discharged to home with steroids, duonebs, Doxycycline, Mucinex, nebulizer machine, CPAP machine. During her hospital stay, patient was found to need CPAP due to COPD exacerbation. She has home sleep study scheduled tonight with an outside facility in [place], [place]. Also, hospitalization, patient complained of "sore" on her buttock that is concerning for developing abscess. Patient will be treated as an outpatient with Doxycycline for 7 days as this will cover for possible MRSA as well as COPD exacerbation/tracheobronchitis. Patient is being given Nicoderm TD patches for smoking cessation. Patient and her were encouraged repeatedly to stop smoking. The risks of continued smoking abuse were discussed. Patient verbalized understanding. Patient was also encouraged to begin a diet and exercise program. Patient Patient is clinically improved at this time and is stable for discharge. She will follow up with her PCP in 7 days. Time spent discussing smoking cessation with patient: 3 to 10 minutes (10 minutes spent discussing smoking cessation with patient and her . Patient verbalizes understanding.) - Time Spent with Patient Total time spent providing and/or coordinating discharge services: Greater than 30 minutes (40 minutes including time with patient and coordinating care) - Constitutional Vitals: Temp Pulse Resp BP Pulse Ox 97.3 F L 81 18 117/72 99 08/18/16 07:24 08/18/16 07:24 08/18/16 07:56 08/18/16 07:24 08/18/16 07:56 General appearance: Present: cooperative, A&O X 3, morbidly obese, no acute distress, answers questions appropriately - Head Head exam: Present: atraumatic, normocephalic - Eye Eye exam: Present: EOMI, PERRL, conjuntiva pink, sclera anicteric - Neck Neck exam general surgery: Present: supple, trachea midline. Absent: lymphadenopathy - Respiratory Respiratory exam: Present: prolonged expiratory phase, wheezes (Diffuse wheezing in all lung andres). Absent: accessory muscle use, rales, rhonchi - Cardiovascular Cardiovascular exam: Present: RRR, +S1, +S2. Absent: diastolic murmur, gallop, rubs, systolic murmur - GI/Abdominal GI/Abdominal exam: Present: soft. Absent: distended - Extremities Exam Extremities exam: Present: pedal edema (1+ pedal edema to bilateral lower legs, unchanged from yesterday.), warm, radial pulses palpable and symetrical. Absent : calf tenderness, cyanotic - Neurological Exam Neurological exam: Present: CN II-XII intact, oriented X3, no focal deficits. Absent: pronater drift, facial droop, speech deficit - Skin Skin exam: Present: dry, erythema, intact Additional comments: Area of erythema and induration to left gluteal crease. Tenderness to palpation of tissue. No fluctuance appreciated. - Other Additional findings: Chest CTA 08/16/16 00:15 IMPRESSION: No evidence for pulmonary emboli. Small nonspecific perihilar adenopathy may be reactive in nature. D/ / Bala Potts MD / Bala Potts MD Interpreting Provider: Bala Potts MD Chest X-Ray 08/17/16 10:18 IMPRESSION: 1. Emphysema. 2. No focal lung infiltrate. D/ / 08/17/2016 11:16:58 Morgan Monte MD / earnold Interpreting Provider: Morgan Monte MD <Hernan Julien - Last Filed: 08/18/16 17:19> Date of Encounter: 08/18/16 Procedures/tests Complete & Pending: Procedures Performed prior 72 hours Category Date Time Status ECG 12 lead ECG [ECG] Urgent Y 08/17/16 10:17 Ordered Date of admission: 08/16/16 04:12 Primary care physician: Juan Edgar, Consults: 08/17/16 17:14 Consult to Respiratory Therapy [CONS] Routine Reason for Consult: Nocturnal Pulse oximetry. Please keep patient on 2L O2 during measurment. Call Completed: No Hospital course: Ms. Becerra is a 46 year old female - Time Spent with Patient Total time spent providing and/or coordinating discharge services: - Constitutional Vitals: Temp Pulse Resp BP Pulse Ox 97.3 F L 81 18 117/72 99 08/18/16 07:24 08/18/16 07:24 08/18/16 07:56 08/18/16 07:24 08/18/16 07:56
[2016-08-18 11:40] LABS: Adenovirus Not Detected (Not Detect); Bordetella Pertussis Not Detected (Not Detect); Chlamydophila pneumoniae Not Detected (Not Detect); Coronavirus 229E Not Detected (Not Detect); Coronavirus HKU1 Not Detected (Not Detect); Coronavirus NL63 Not Detected (Not Detect); Coronavirus OC43 Not Detected (Not Detect); Human Metapneumovirus Not Detected (Not Detect); Human Rhinovirus/Enterovirus Not Detected (Not Detect); Influenza A Subtype 2009 H1 Not Detected (Not Detect); Influenza A Untypeable Not Detected (Not Detect); Influenza B Not Detected (Not Detect); Mycoplasma pneumoniae Not Detected (Not Detect); Parainfluenza Virus 1 Not Detected (Not Detect); Parainfluenza Virus 2 Not Detected (Not Detect); Parainfluenza Virus 3 Not Detected (Not Detect); Parainfluenza Virus 4 Not Detected (Not Detect); Respiratory Syncytial Virus Not Detected (Not Detect)
== END 2016-08-18 10:59 | disposition home or self-care (01) | DRG 871 ==
LOC: 3ANU 22:03 → EMEROO 22:03 → 3ANU 08-16 00:57 → SUATTDRO 08-16 04:12
PROVIDERS: ADMIT Internal Medicine; ATTEND Internal Medicine

== ENCOUNTER 2018-02-08 23:37 | Inpatient (IN) ==
[2018-02-08] MEDS ORDERED: 0.9 % Sodium Chloride 1,000 ML IVC ONE (23:48)
--- NOTE | 2018-02-09 | Emergency Department Note ---
Disposition Clinical Impression: Cough Sepsis Qualifiers: Sepsis type: sepsis due to unspecified organism Qualified Code(s): A41.9 - Sepsis, unspecified organism Pneumonia Qualifiers: Pneumonia type: due to unspecified organism Laterality: unspecified laterality Lung location: unspecified part of lung Qualified Code(s): J18.9 - Pneumonia, unspecified organism Disposition: Admitted As Inpatient Condition: Fair Time of Disposition: 07:54 Fever HPI - General Chief Complaint: ED Fever Stated Complaint: "High Fever/Flu Like Symptoms" Time Seen by Provider: 02/08/18 23:47 Source: patient Mode of arrival: ambulatory Limitations: no limitations Nursing Notes Reviewed: Yes Vital Signs Reviewed: Yes - History of Present Illness HPI Narrative: Patient is a 47-year-old female with past medical history of COPD, hypertension, hyperlipidemia, diabetes, fibromyalgia. She presents today due to concern for high fever, body aches, cough, sputum production, wheezing. She states that she started having a fever yesterday evening and had MAXIMUM TEMPERATURE of 103 at home. She has been alternating Motrin and Tylenol as directed as needed for fever control. She states that her cough and sputum production have mildly worsened today. She was concern for possible pneumonia which prompted her to come in for further care. Denies any other chest pain, nausea, vomiting, abdominal pain, diarrhea, dysuria, hematuria, vaginal bleeding or discharge. No other sick contacts in the house. - Related Data Home Medications Medication Instructions Recorded Confirmed Acetaminophen/Butalbital/Caffe 1 - 2 tab PO TID 12/07/15 02/09/18 [Fioricet] BuPROPion SR (12 HR) [Wellbutrin 150 mg PO BID 12/07/15 02/09/18 SR] Furosemide [Lasix] 160 mg PO BID 12/07/15 02/09/18 Levothyroxine [Synthroid] 50 mcg PO DAILY 12/07/15 02/09/18 Omeprazole 40 mg PO DAILY 12/07/15 02/09/18 Potassium Chloride [K-Tab ER] 40 meq PO TID 12/07/15 02/09/18 Topiramate [Topamax] 200 mg PO BID 12/07/15 02/09/18 TraZODone 150 mg PO HS 12/07/15 02/09/18 Doxepin [Sinequan] 25 mg PO HS 04/20/16 02/09/18 metFORMIN [Glucophage] 500 mg PO BIDWM 06/21/16 02/09/18 Atorvastatin [Lipitor] 40 mg PO HS 02/09/18 02/09/18 Baclofen [Lioresal] 10 mg PO TID 02/09/18 02/09/18 Gabapentin [Neurontin] 800 mg PO TID 02/09/18 02/09/18 Lisinopril [Zestril] 10 mg PO DAILY 02/09/18 02/09/18 Sulfamethoxazole/Trimeth DS 1 tab PO BID 02/09/18 02/09/18 [Bactrim DS] Previous Rx's Medication Instructions Recorded Albuterol Sulfate [Albuterol 1 puff IH Q4H PRN 90 Days inhaler 04/22/16 Inhaler] Allergies Allergy/AdvReac Type Severity Reaction Status Date / Time aspirin AdvReac Gastrointestinal Verified 02/08/18 23:45 Upset naproxen AdvReac Gastrointestinal Verified 02/08/18 23:45 Upset All systems ED: reviewed and negative except as stated. Constitutional: Reports: fever Cardiovascular: Denies: chest pain Respiratory: Reports: cough, dyspnea, wheezes, sputum production Gastrointestinal: Denies: abdominal pain, nausea, vomiting, diarrhea Integumentary: Denies: rash Neurological: Denies: headache, weakness, numbness, paresthesias Fever PMH - Past Medical History Medical history: Reports: arthritis, asthma, COPD, diabetes, fibromyalgia, GERD, hyperlipidemia, hypertension, migraine, osteoporosis, thyroid disease, other Surgical history: Reports: cholecystectomy, hysterectomy, other (Ovarian cyst r emoval, right rotator cuff repair) Psychiatric history: Reports: anxiety, bipolar, depression, other [employer] history: Reports: no [employer] history - Social History Smoking Status: Current every day smoker Alcohol use: Reports: none Drug use: Reports: none Physical Exam - General Limitations: no limitations General appearance: alert - Head Head exam: atraumatic, normocephalic, normal inspection - Eye Eye exam: Present: normal appearance, PERRL, EOMI - ENT ENT exam: normal exam, normal oropharynx, mucous membranes moist - Neck Neck exam: Present: normal inspection, full ROM, trachea midline - Chest Chest inspection: Present: normal inspection, symmetric chest wall rise - Respiratory Respiratory exam: Present: other (Wheezes and rhonchi at the left lower lobe). Absent: accessory muscle use - Cardiovascular Cardiovascular exam: Present: normal rhythm, tachycardia, normal heart sounds - Abdominal Exam Abdominal exam: Present: soft, Non-Tender. Absent: tenderness, distention, guarding, rebound, rigidity - Extremities Exam Extremities exam: Present: normal inspection, full ROM. Absent: tenderness, pedal edema - Neurological Exam Neurological exam: Present: alert, oriented X3 - Psychiatric Psychiatric exam: Present: normal affect, normal mood - Skin Skin exam: Present: warm, dry, intact, normal color Course Course Narrative: Patient was tachycardic and febrile, hypoxic. She was given Tylenol, fluid bolus. Physical exam showed left lower lobe rhonchi and wheezing. Currently concern for pneumonia versus fluid. Chest x-ray obtained, these were all obtained. Also obtain basic blood work, lactic acid. Patient was given DuoNeb 3 and Solu-Medrol. Elevated WBC. Chest x-ray shows possible bibasilar airspace disease. Vancomycin, Zosyn, Levaquin started. Patient was given antipyretic. She currently meets sepsis criteria. Patient was admitted to the hospitalist for further care. Fluids given. Stable BP upon admission. Chest X-Ray 02/09/18 23:48 IMPRESSION: Suspected central pulmonary vascular congestion. Increased bibasilar opacity is likely related to body habitus. Airspace disease is considered less likely. D/ / Mery Hernandez Cha, MD / Mery Hernandez Cha, MD Interpreting Provider: Mery Hernandez Cha, MD Vital Signs Temperature 102.4 F H 02/08/18 23:39 Pulse Rate 122 02/08/18 23:39 Respiratory Rate 28 02/08/18 23:39 Blood Pressure 137/81 02/08/18 23:39 O2 Sat by Pulse Oximetry 91 02/08/18 23:39 Temperature 97.7 F 02/11/18 06:39 Pulse Rate 84 02/11/18 06:39 Respiratory Rate 16 02/11/18 06:39 Blood Pressure 101/63 02/11/18 06:39 O2 Sat by Pulse Oximetry 96 02/11/18 06:39 Oxygen Delivery Oxygen Delivery Aerosol Mask Fever - MDM Narrative Medical decision making narrative: Patient was tachycardic and febrile, hypoxic. She was given Tylenol, fluid nela us. Physical exam showed left lower lobe rhonchi and wheezing. Currently concern for pneumonia versus fluid. Chest x-ray obtained, these were all obtained. Also obtain basic blood work, lactic acid. Patient was given DuoNeb 3 and Solu-Medrol. Elevated WBC. Chest x-ray shows possible bibasilar airspace disease. Vancomycin, Zosyn, Levaquin started. Patient was given antipyretic. She curre ntly meets sepsis criteria. Patient was admitted to the hospitalist for further care. Fluids given. Stable BP upon admission. - Medical Records Medical records reviewed: Yes I reviewed the patient's medical records. - Lab Data Lab results reviewed: Yes I reviewed the patient's lab results. Result diagrams: 02/11/18 03:29 02/11/18 03:29 Lab Results 02/09/18 02/09/18 02/09/18 Range/Units 00:18 00:18 00:18 WBC 23.2 H (4.3-11.1) K/mcL RBC 4.31 (3.82-4.97) M/mcL Hgb 12.9 (11.5-15.4) g/dL Hct 38.5 (35.3-44.9) % MCV 89.3 (83.0-100.0) fL MCH 29.9 (28.0-33.3) pg MCHC 33.5 (31.6-35.5) g/dL RDW 15.5 H (11.5-14.5) % Plt Count 258 (140-400) K/mcL MPV 10.3 (9.4-12.4) fL Immature Gran % 0.9 (0-4) % Seg Neutrophils % 77.0 % Lymphocytes % 14.6 % Monocytes % 7.2 % Eosinophils % 0.1 % Basophils % 0.2 % Neutrophils # 17.9 H (1.6-8.9) K/mcL Lymphocytes # 3.4 (0.6-4.6) K/mcL Monocytes # 1.7 H (0.0-1.3) K/mcL Eosinophils # 0.0 (0.0-0.6) K/mcL Basophils # 0.0 (0.0-0.2) K/mcL Immature Plt Fraction (1.1-6.1) % Sodium 128 L (136-145) mEq/L Potassium 4.6 (3.5-5.1) mEq/L Chloride 96 L (98-107) mEq/L Carbon Dioxide 23 (23-29) mEq/L BUN 10 (6-20) mg/dL Creatinine 0.89 (0.60-1.20) mg/dL Est GFR ( Amer) > 60 (> 60) Est GFR (Non-Af Amer) > 60 (> 60) BUN/Creatinine Ratio 11 (6-26) Glucose 117 H (70-105) mg/dL POC Glucose (70-99) mg/dL Calculated Osmolality 266 L (280-300) Lactic Acid 1.0 (0.5-2.2) mmol/L Calcium 8.8 (8.6-10.3) mg/dL Total Bilirubin (0.3-1.0) mg/dL AST (13-39) Units/L ALT (7-52) Units/L Alkaline Phosphatase (34-104) Units/L B-Natriuretic Peptide (Less than 100) pg/mL Serum Total Protein (6.4-8.9) g/dL Albumin (3.5-5.7) g/dL Globulin (2.4-3.5) g/dL Albumin/Globulin Ratio (1.1-2.2) 02/09/18 02/09/18 02/09/18 Range/Units 00:18 03:20 07:41 WBC (4.3-11.1) K/mcL RBC (3.82-4.97) M/mcL Hgb (11.5-15.4) g/dL Hct (35.3-44.9) % MCV (83.0-100.0) fL MCH (28.0-33.3) pg MCHC (31.6-35.5) g/dL RDW (11.5-14.5) % Plt Count (140-400) K/mcL MPV (9.4-12.4) fL Immature Gran % (0-4) % Seg Neutrophils % % Lymphocytes % % Monocytes % % Eosinophils % % Basophils % % Neutrophils # (1.6-8.9) K/mcL Lymphocytes # (0.6-4.6) K/mcL Monocytes # (0.0-1.3) K/mcL Eosinophils # (0.0-0.6) K/mcL Basophils # (0.0-0.2) K/mcL Immature Plt Fraction (1.1-6.1) % Sodium (136-145) mEq/L Potassium (3.5-5.1) mEq/L Chloride (98-107) mEq/L Carbon Dioxide (23-29) mEq/L BUN (6-20) mg/dL Creatinine (0.60-1.20) mg/dL Est GFR ( Amer) (> 60) Est GFR (Non-Af Amer) (> 60) BUN/Creatinine Ratio (6-26) Glucose (70-105) mg/dL POC Glucose 174 H 218 H (70-99) mg/dL Calculated Osmolality (280-300) Lactic Acid (0.5-2.2) mmol/L Calcium (8.6-10.3) mg/dL Total Bilirubin (0.3-1.0) mg/dL AST (13-39) Units/L ALT (7-52) Units/L Alkaline Phosphatase (34-104) Units/L B-Natriuretic Peptide 23 (Less than 100) pg/mL Serum Total Protein (6.4-8.9) g/dL Albumin (3.5-5.7) g/dL Globulin (2.4-3.5) g/dL Albumin/Globulin Ratio (1.1-2.2) 02/09/18 02/09/18 02/09/18 Range/Units 07:58 07:58 07:58 WBC 14.6 H (4.3-11.1) K/mcL RBC 4.10 (3.82-4.97) M/mcL Hgb 12.3 (11.5-15.4) g/dL Hct 37.1 (35.3-44.9) % MCV 90.5 (83.0-100.0) fL MCH 30.0 (28.0-33.3) pg MCHC 33.2 (31.6-35.5) g/dL RDW 15.5 H (11.5-14.5) % Plt Count 253 (140-400) K/mcL MPV 10.4 (9.4-12.4) fL Immature Gran % 0.8 (0-4) % Seg Neutrophils % 87.5 % Lymphocytes % 7.9 % Monocytes % 3.7 % Eosinophils % 0.0 % Basophils % 0.1 % Neutrophils # 12.8 H (1.6-8.9) K/mcL Lymphocytes # 1.2 (0.6-4.6) K/mcL Monocytes # 0.5 (0.0-1.3) K/mcL Eosinophils # 0.0 (0.0-0.6) K/mcL Basophils # 0.0 (0.0-0.2) K/mcL Immature Plt Fraction 5.3 (1.1-6.1) % Sodium 134 L (136-145) mEq/L Potassium 4.7 (3.5-5.1) mEq/L Chloride 105 (98-107) mEq/L Carbon Dioxide 19 L (23-29) mEq/L BUN 10 (6-20) mg/dL Creatinine 0.74 (0.60-1.20) mg/dL Est GFR ( Amer) > 60 (> 60) Est GFR (Non-Af Amer) > 60 (> 60) BUN/Creatinine Ratio 14 (6-26) Glucose 193 H (70-105) mg/dL POC Glucose (70-99) mg/dL Calculated Osmolality 282 (280-300) Lactic Acid 2.0 (0.5-2.2) mmol/L Calcium 8.7 (8.6-10.3) mg/dL Total Bilirubin 0.4 (0.3-1.0) mg/dL AST 10 L (13-39) Units/L ALT 21 (7-52) Units/L Alkaline Phosphatase 82 (34-104) Units/L B-Natriuretic Peptide (Less than 100) pg/mL Serum Total Protein 6.4 (6.4-8.9) g/dL Albumin 3.6 (3.5-5.7) g/dL Globulin 2.8 (2.4-3.5) g/dL Albumin/Globulin Ratio 1.3 (1.1-2.2) 02/09/18 02/09/18 02/09/18 Range/Units 11:43 13:30 16:43 WBC (4.3-11.1) K/mcL RBC (3.82-4.97) M/mcL Hgb (11.5-15.4) g/dL Hct (35.3-44.9) % MCV (83.0-100.0) fL MCH (28.0-33.3) pg MCHC (31.6-35.5) g/dL RDW (11.5-14.5) % Plt Count (140-400) K/mcL MPV (9.4-12.4) fL Immature Gran % (0-4) % Seg Neutrophils % % Lymphocytes % % Monocytes % % Eosinophils % % Basophils % % Neutrophils # (1.6-8.9) K/mcL Lymphocytes # (0.6-4.6) K/mcL Monocytes # (0.0-1.3) K/mcL Eosinophils # (0.0-0.6) K/mcL Basophils # (0.0-0.2) K/mcL Immature Plt Fraction (1.1-6.1) % Sodium (136-145) mEq/L Potassium (3.5-5.1) mEq/L Chloride (98-107) mEq/L Carbon Dioxide (23-29) mEq/L BUN (6-20) mg/dL Creatinine (0.60-1.20) mg/dL Est GFR ( Amer) (> 60) Est GFR (Non-Af Amer) (> 60) BUN/Creatinine Ratio (6-26) Glucose (70-105) mg/dL POC Glucose 157 H 200 H (70-99) mg/dL Calculated Osmolality (280-300) Lactic Acid 1.8 (0.5-2.2) mmol/L Calcium (8.6-10.3) mg/dL Total Bilirubin (0.3-1.0) mg/dL AST (13-39) Units/L ALT (7-52) Units/L Alkaline Phosphatase (34-104) Units/L B-Natriuretic Peptide (Less than 100) pg/mL Serum Total Protein (6.4-8.9) g/dL Albumin (3.5-5.7) g/dL Globulin (2.4-3.5) g/dL Albumin/Globulin Ratio (1.1-2.2) - Radiology Data Radiology results reviewed: Yes I reviewed the patient's radiology results. Critical Care Time Critical Care Time: Yes Total Critical Care Time: 35 Attestation: hypoxia, hyponatremia S.B.A.R. - S.B.A.Ye. Situation: Demographics, MOA Background: Presenting Complaint, Relevant PMH, Meds, & Allergies Assessment: Vital Signs, Course and respsone to treatment, Exam Concerns, Patient/Family Expectation, Pertinant Lab Results Recommendation: Barrier(s) to disposition, Recommendation based on pending s tudies, treatments, or consults S.B.A.R. Report Given to: Dr. Bains Attestation Statement - Attestation Attestation: Dr. Byrne note: Patient seen in conjunction with resident Dr. Guerrero. Please see his charting for complete documentation. I spent [id number] time with the patient and I agree with the patient's treatment and disposition. fever/cough x 1 day; still smokes; hypoxia noted w/ sats 88-90% on RA w/ tachypnea; x ray /labs noted; sodium 128; abx given; o2 supplementation neeeded
[2018-02-09] MEDS ORDERED: methylPREDNISolone 125 MG/2 ML VIAL IVP ONE (00:01)
[2018-02-09 00:32] LABS: Basophils % 0.2 %; Eosinophils % 0.1 %; Hematocrit 38.5 % (35.3-44.9); Hemoglobin 12.9 g/dL (11.5-15.4); Immature Granulocytes % 0.9 % (0-4); Lymphocytes # 3.4 K/mcL (0.6-4.6); Lymphocytes % 14.6 %; Mean Corpuscular HGB Conc 33.5 g/dL (31.6-35.5); Mean Corpuscular Hemoglobin 29.9 pg (28.0-33.3); Mean Corpuscular Volume 89.3 fL (83.0-100.0); Mean Platelet Volume 10.3 fL (9.4-12.4); Monocytes # 1.7 K/mcL (0.0-1.3); Monocytes % 7.2 %; Neutrophils # 17.9 K/mcL (1.6-8.9); Platelet Count 258 K/mcL (140-400); Red Blood Count 4.31 M/mcL (3.82-4.97); Red Cell Distribution Width 15.5 % (11.5-14.5)
[2018-02-09 00:51] LABS: BUN/Creatinine Ratio 11 (6-26); Blood Urea Nitrogen 10 mg/dL (6-20); Calcium 8.8 mg/dL (8.6-10.3); Carbon Dioxide 23 mEq/L (23-29); Chloride 96 mEq/L (98-107); Glucose 117 mg/dL (70-105); Osmolality,Calculated 266 (280-300); Potassium 4.6 mEq/L (3.5-5.1); Sodium 128 mEq/L (136-145); eGFR For Non-African Americans > 60 (> 60)
[2018-02-09] MEDS ORDERED: Piperacillin/Tazobactam 3.375 GM in 0.9 % Sodium Chloride Mini Bag 100 ML IVPB ONE (01:46)
[2018-02-09] MEDS ORDERED: Ipratropium/Albuterol Neb 3 ML ONE (04:13)
[2018-02-09] MEDS ORDERED: 0.9 % Sodium Chloride 1,000 ML ONE ×2 (04:41→06:27)
[2018-02-09] MEDS ORDERED: 0.9 % Sodium Chloride 1,000 ML IVC SCH (05:00)
[2018-02-09] MEDS ORDERED: Ipratropium/Albuterol Neb 3 ML IH PRN (06:15)
[2018-02-09] MEDS: Ipratropium/Albuterol Neb 3 ML IH SCH ×4 (12:41→23:21)
[2018-02-09] MEDS: Levofloxacin 750 MG/150 ML 750 MG/150 ML BAG IVPB SCH (13:07)
[2018-02-09] MEDS: methylPREDNISolone 125 MG/2 ML VIAL IVP SCH ×3 (13:07→21:11)
[2018-02-09] MEDS: Acetaminophen/Butalbital/CaffeineTABLET PO PRN ×3 (13:07→21:52)
[2018-02-09] MEDS: Topiramate 100 MG TABLET PO SCH ×2 (13:07→20:52)
[2018-02-09] MEDS ORDERED: D5% in Water 1,000 ML IVC PRN (13:34)
[2018-02-09] MEDS ORDERED: Dextrose Gel 15 GM/37.5 ML TUBE PO PRN ×2 (13:34)
[2018-02-09] MEDS ORDERED: *HR* Dextrose 50 % in Water (Syg) 50 ML SYRINGE IVP PRN (13:34)
--- NOTE | 2018-02-09 13:41 | Electrocardiograph Report ---
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
[2018-02-09] MEDS ORDERED: Fluconazole 100 MG TABLET PO SCH (14:15)
[2018-02-09] MEDS ORDERED: 0.9 % Sodium Chloride 1,000 ML IV.SOLN IV ONE ×2 (15:01)
[2018-02-09] MEDS ORDERED: 0.9 % Sodium Chloride (Mini-Bag +) 100 ML IVBAG IVC ONE (15:01)
[2018-02-09] MEDS ORDERED: Aminoglycoside Consult 1 EACH MC ONE (15:01)
[2018-02-09] MEDS ORDERED: Ipratropium/Albuterol Neb 3 ML IH ONE ×2 (15:01)
[2018-02-09] MEDS ORDERED: Piperacillin/Tazobactam 3.375 GM VIAL IVPB ONE (15:01)
[2018-02-09 16:18] LABS: Basophils % 0.1 %; Hematocrit 37.1 % (35.3-44.9); Hemoglobin 12.3 g/dL (11.5-15.4); Immature Granulocytes % 0.8 % (0-4); Immature Platelets 5.3 % (1.1-6.1); Lymphocytes # 1.2 K/mcL (0.6-4.6); Lymphocytes % 7.9 %; Mean Corpuscular HGB Conc 33.2 g/dL (31.6-35.5); Mean Corpuscular Volume 90.5 fL (83.0-100.0); Mean Platelet Volume 10.4 fL (9.4-12.4); Monocytes # 0.5 K/mcL (0.0-1.3); Monocytes % 3.7 %; Neutrophils # 12.8 K/mcL (1.6-8.9); Platelet Count 253 K/mcL (140-400); Red Cell Distribution Width 15.5 % (11.5-14.5); Segmented Neutrophils % 87.5 %
[2018-02-09 16:54] LABS: BUN/Creatinine Ratio 14 (6-26); Blood Urea Nitrogen 10 mg/dL (6-20); Carbon Dioxide 19 mEq/L (23-29); Chloride 105 mEq/L (98-107); Potassium 4.7 mEq/L (3.5-5.1); Sodium 134 mEq/L (136-145); eGFR For Non-African Americans > 60 (> 60)
[2018-02-09 16:55] LABS: Alanine Aminotransferase 21 Units/L (7-52); Albumin 3.6 g/dL (3.5-5.7); Albumin/Globulin Ratio 1.3 (1.1-2.2); Alkaline Phosphatase 82 Units/L (34-104); Aspartate Amino Transferase 10 Units/L (13-39); Bilirubin,Total 0.4 mg/dL (0.3-1.0); Calcium 8.7 mg/dL (8.6-10.3); Globulin 2.8 g/dL (2.4-3.5); Glucose 193 mg/dL (70-105); Osmolality,Calculated 282 (280-300); Total Protein 6.4 g/dL (6.4-8.9)
--- NOTE | 2018-02-09 16:59 | Event Note ---
Date of Encounter: 02/09/18 Time of Encounter: 16:54 NOTE: Patient was admitted approx 0400 today. [employer] system was down at that time. H&P is planned to be uploaded to EMR. In brief this is a 47 year old female COPD, diabetes presented for fever, persistent cough, malaise. She presented to ED with fever of Tmax 102.4, HR 122, RR 28. WBC was elevated at 23k. She was hypotensive requiring IV fluids and she had blood cultures obtained and started on emperic antibiotic therapy. EKG showed sinus tachycardia, 1. Acute respiratory failure 2. Severe Sepsis 3. Pneumonia. 4. COPD exacerbation 5. Diabetes 6. DVT Prophylaxis - Currently on 4 L O2 at bedside, not on O2 during daytime usually. At home she uses O2 at night. - Continue Vanc/Levaquin today - Follow-up cultures - Duo Nebs - Stop IV fluids now that she has been adequately hydrated . She is on Lasix 160 mg PO BID at home, and patient states she gets fluid overloaded easily. She is hemodynamically stable and BP is now wnl. Recheck fluid status. - Continue IV solu medrol. Taper as tolerated. - Heparin SQ 5,000 units BID
[2018-02-09] MEDS: Insulin LISPRO 300 UNITS/3 ML VIAL SQ SCH ×2 (17:51→21:08)
[2018-02-09] MEDS: Nicotine 2 MG GUM BC PRN (17:52)
[2018-02-09] MEDS: Nystatin SUSP 5 ML UD.LIQ PO SCH ×2 (17:52→20:52)
--- NOTE | 2018-02-09 19:14 | Internal Med History&Physical ---
Date of Encounter: 02/09/18 Time of Encounter: 04:30 Internal Medicine - H&P: HPI Chief complaint: fever, cough, SOB, body aches Admitted From: Emergency Dept Plans for Post Hospital Care: Home History of present illness: Sarah Becerra MR# [id number] 02/09/2018 04:30 am -- [facility] DOWN TIME H&P CC: fever, cough SOB, body aches [place]: Patient presents with 2 to 3-day history of fever to 102 degrees Fahrenheit, body aches, cough, wheezing, shortness of breath, and productive sputum. She came to ER for evaluation where she was noted to have clinical evidence of sepsis and suspected pneumonia on imaging and exam. She received 1 L fluid bolus the ER as well as antibiotics. She was then admitted to hospitalist service. Upon my assessment of the patient, she appears to be clinically septic. Blood pressures are running roughly 90s over 70s. Heart rate is borderline tachycardic with heart rate in the 90s to low 100s. She is has oxygen saturations of 88% on 6 L nasal cannula while sleeping. When I wake her up, her O2 sats increased to 92%. She denies any chest pain. She does admit to dyspnea, coughing, wheezing, high fevers, shakes, chills, and body aches. She has had some nausea but no vomiting or diarrhea. She has COPD and wears oxygen at home, mostly at night. Despite her COPD and oxygen dependency, she continues to smoke. She denies any ill contacts. She denies any recent hospitalizations. Past medical history pertinent for COPD, type 2 diabetes, fibromyalgia, GERD, hyperlipidemia, hypertension, hypothyroidism Past surgical history is pertinent for cholecystectomy, hysterectomy, rotator cuff repair Psychiatric history pertinent for anxiety and depression Social history pertinent for chronic daily smoking, no alcohol, no drugs Family history pertinent for COPD and asthma. Review of systems: Pertinent positives: Fevers, nausea, chills, body aches, cough, wheezing, shortness of breath, fatigue Pertinent negatives: No chest pain, no vomiting, no diarrhea, no abdominal pain Exam: Temperature: 102.3 degrees Fahrenheit; pulse: 111; respiratory rate 20; blood pressure 95/71 Gen. exam: Ill-appearing, nontoxic, pale, purple nailbeds with preserved c entral perfusion HEENT: Pupils equal round reactive to light and accommodation, EOMI, dry mucous membranes, neck supple, no lymphadenopathy Chest: Diffuse wheezing and prolonged expiratory phase throughout. She has bibasilar crackles in the left base and right anterior chest. + tachypnea. Borderline tachycardic rhythm with heart rate 95-100 and regular presently. Grade 1/6 systolic murmur. Abdomen: Soft, nontender, no hepatosplenomegaly, positive bowel sounds, no rebound. Extremities: Full Range of motion, no joint effusion, tenderness, evidence of poor perfusion with pale to purple nailbeds and delayed cap refill. Extremities are cool to touch but pulses are 2+ throughout all 4 extremities Back exam: No flank tenderness Neurologic: Cranial nerves II through XII intact and symmetrical. No focal motor or sensory deficits. Alert and oriented 3. Skin: Warm centrally with cool extremities and poor perfusion peripherally. Positive skin tenting and clinical signs of dehydration. No rash or petechiae appreciated. Psychiatric: Patient anxious and asking for pain medications. Labs: Chest x-ray: Bibasilar infiltrates in my opinion, right greater than left WBC 23.2 Hemoglobin 12.9 Hematocrit 38.5 Platelets 258 Sodium 128 Potassium 4.6 Chloride 96 Carbon dioxide 23 BUN 10 Thor 0.89 Glucose 117 Lactic acid 1.0 Impression/plan: 1. Sepsis: Blood cultures, sputum cultures, IV antibiotics, and I will give a repeat fluid bolus. We will trend lactate and follow clinically. We will continue IV fluid hydration and consider pressors after completing 30 mL per kilogram fluid bolus. Likely source of sepsis is pneumonia and we will treat as such. 2. Pneumonia with hypoxemic respiratory failure: Antibiotics and support as above. We will start on BiPAP and monitor clinically. If she does not tolerate above and/or decompensates, she will need to move to the intensive care unit for ongoing care and respiratory intervention such as intubation and mechanical ventilation. However, I feel clinically that she will improve with BiPAP with the above measures. 3. Type 2 diabetes: We will place her on sliding scale insulin for glucoses accordingly. 4. DVT prophylaxis: We will place on subcutaneous heparin. Khurram Lagunas MD Past Med Surg Social Fam HX - Past Medical History Medical history: arthritis, asthma, COPD, diabetes, fibromyalgia, GERD, hyperlipidemia, hypertension, migraine, osteoporosis, thyroid disease, other Additional medical history: pneumonia Psychiatric history: anxiety, bipolar, depression, other - Past Surgical History Surgical History: cholecystectomy, hysterectomy, other (Ovarian cyst removal, right rotator cuff repair) Additional surgical history: rt shoulder,. pilonidal cyst. ovarian cyst. heart cath - Social History Smoking Status: Current every day smoker Smokeless Tobacco Status: No Alcohol use: none Drug use: none - Family History Sister Living Status: Still Living Hx Family Cardiac Disorders: Yes ([place]) Hx Family Endocrine Disorder: Yes (DM) Father Living Status: Still Living Hx Family Cardiac Disorders: Yes ([place]) Hx Family Respiratory Disorders: Yes Mother Living Status: Hx Family Cardiac Disorders: Yes (Heart disease) Hx Family Cancer: Yes (lung cancer) Internal Medicine - H&P: Meds Acetaminophen/Butalbital/Caffe [Fioricet] 1 - 2 tab PO TID 12/07/15 [History] BuPROPion SR (12 HR) [Wellbutrin SR] 150 mg PO BID 12/07/15 [History] Furosemide [Lasix] 160 mg PO BID 12/07/15 [History] Levothyroxine [Synthroid] 50 mcg PO DAILY 12/07/15 [History] Omeprazole 40 mg PO DAILY 12/07/15 [History] Potassium Chloride [K-Tab ER] 40 meq PO TID 12/07/15 [History] Topiramate [Topamax] 200 mg PO BID 12/07/15 [History] TraZODone 150 mg PO HS 12/07/15 [History] Doxepin [Sinequan] 25 mg PO HS 04/20/16 [History] Albuterol Sulfate [Albuterol Inhaler] 1 puff IH Q4H PRN 90 Days inhaler 04/22/16 [Rx] metFORMIN [Glucophage] 500 mg PO BIDWM 06/21/16 [History] Atorvastatin [Lipitor] 40 mg PO HS 02/09/18 [History] Baclofen [Lioresal] 10 mg PO TID 02/09/18 [History] Gabapentin [Neurontin] 800 mg PO TID 02/09/18 [History] Lisinopril [Zestril] 10 mg PO DAILY 02/09/18 [History] Sulfamethoxazole/Trimeth DS [Bactrim DS] 1 tab PO BID 02/09/18 [History] Allergy/AdvReac Type Severity Reaction Status Date / Time aspirin AdvReac Gastrointestinal Verified 02/08/18 23:45 Upset naproxen AdvReac Gastrointestinal Verified 02/08/18 23:45 Upset All Systems PM: A 10-system review of systems was performed and is negative for pertinent findi ngs except as documented above in the HPI. - Constitutional Vitals: Temp Pulse Resp BP Pulse Ox 98.6 F 84 16 117/64 92 02/09/18 17:09 02/09/18 17:09 02/09/18 17:09 02/09/18 17:09 02/09/18 18:11 Exam: see above Internal Med - H&P Results - Labs CBC & Chem 7: 02/09/18 07:58 02/09/18 07:58 Labs: Short CBC 02/09/18 02/09/18 Range/Units 00:18 07:58 WBC 23.2 H 14.6 H (4.3-11.1) K/mcL Hgb 12.9 12.3 (11.5-15.4) g/dL Hct 38.5 37.1 (35.3-44.9) % Plt Count 258 253 (140-400) K/mcL Neutrophils # 17.9 H 12.8 H (1.6-8.9) K/mcL BMP 02/09/18 02/09/18 00:18 07:58 Sodium 128 L 134 L Potassium 4.6 4.7 Chloride 96 L 105 Carbon Dioxide 23 19 L BUN 10 10 Creatinine 0.89 0.74 Glucose 117 H 193 H Calcium 8.8 8.7 Liver Function 02/09/18 Range/Units 07:58 Total Bilirubin 0.4 (0.3-1.0) mg/dL AST 10 L (13-39) Units/L ALT 21 (7-52) Units/L Alkaline Phosphatase 82 (34-104) Units/L Albumin 3.6 (3.5-5.7) g/dL - Impressions ITS Impressions Chest X-Ray 02/09/18 23:48 IMPRESSION: Suspected central pulmonary vascular congestion. Increased bibasilar opacity is likely related to body habitus. Airspace disease is considered less likely. D/ / Mery Hernandez Cha, MD / Mery Hernandez Cha, MD Interpreting Provider: Mery Hernandez Cha, MD - Time Spent With Patient Total time spent is greater than 50% in coordination of care (as documented) at patient's floor/unit and/or counseling patient:
[2018-02-09] MEDS: Nicotine 21 MG PATCH.TD24 TD SCH (20:49)
[2018-02-09] MEDS: BuPROPion SR (12 HR) 150 MG TABLET PO SCH (20:49)
[2018-02-09] MEDS: *HR* Heparin 5,000 UNIT/ML VIAL SQ SCH (20:50)
[2018-02-09] MEDS: Gabapentin 400 MG CAPSULE PO SCH (20:52)
[2018-02-09] MEDS: traZODone 50 MG TABLET PO SCH (20:53)
[2018-02-09] MEDS ORDERED: Gabapentin 400 MG CAPSULE PO SCH (21:00)
[2018-02-09] MEDS: Baclofen 10 MG TABLET PO SCH (21:08)
[2018-02-09] MEDS: Insulin DETEMIR 100 UNIT/ML X5UNITS SQ SCH (21:09)
[2018-02-09 21:50] LABS: Bilirubin,Urine Negative (Negative); Blood,Urine Negative (Negative); Clarity,Urine Clear (Clear); Color,Urine Yellow (Yellow); Glucose,Urine (UA) Normal (Normal); Ketones,Urine Negative (Negative); Leukocyte Esterase,Urine Negative (Negative); Nitrite,Urine Negative (Negative); PH,Urine 7.5 pH Units (5.0-8.0); Protein,Urine Negative (Neg-Trace); Specific Gravity,Urine 1.019 (1.010-1.025); Urobilinogen,Urine Normal (Normal)
[2018-02-09 23:11] LABS: Adenovirus Not Detected (Not Detect); Bordetella Pertussis Not Detected (Not Detect); Chlamydophila pneumoniae Not Detected (Not Detect); Coronavirus 229E Not Detected (Not Detect); Coronavirus HKU1 Not Detected (Not Detect); Coronavirus NL63 Not Detected (Not Detect); Coronavirus OC43 Not Detected (Not Detect); Human Metapneumovirus Not Detected (Not Detect); Human Rhinovirus/Enterovirus Not Detected (Not Detect); Influenza A Subtype 2009 H1 Not Detected (Not Detect); Influenza A Untypeable Not Detected (Not Detect); Influenza B Not Detected (Not Detect); Mycoplasma pneumoniae Not Detected (Not Detect); Parainfluenza Virus 1 Not Detected (Not Detect); Parainfluenza Virus 2 Not Detected (Not Detect); Parainfluenza Virus 3 Not Detected (Not Detect); Parainfluenza Virus 4 Not Detected (Not Detect); Respiratory Syncytial Virus Not Detected (Not Detect)
[2018-02-10] MEDS: Ipratropium/Albuterol Neb 3 ML IH SCH ×6 (03:20→23:16)
[2018-02-10] MEDS: Acetaminophen/Butalbital/CaffeineTABLET PO PRN ×3 (04:02→22:27)
[2018-02-10 04:16] LABS: Basophils % 0.2 %; Immature Granulocytes % 1.1 % (0-4); Mean Corpuscular HGB Conc 32.3 g/dL (31.6-35.5); Mean Corpuscular Hemoglobin 29.5 pg (28.0-33.3); Mean Corpuscular Volume 91.4 fL (83.0-100.0); Monocytes # 0.6 K/mcL (0.0-1.3); Monocytes % 4.9 %; Neutrophils # 9.7 K/mcL (1.6-8.9); Platelet Count 253 K/mcL (140-400); Red Blood Count 3.83 M/mcL (3.82-4.97); Red Cell Distribution Width 15.4 % (11.5-14.5); Segmented Neutrophils % 84.8 %
[2018-02-10 04:18] LABS: Hemoglobin 11.3 g/dL (11.5-15.4)
[2018-02-10 04:31] LABS: BUN/Creatinine Ratio 20 (6-26); Blood Urea Nitrogen 13 mg/dL (6-20); Carbon Dioxide 18 mEq/L (23-29); Chloride 108 mEq/L (98-107); Glucose 338 mg/dL (70-105); Osmolality,Calculated 289 (280-300); Potassium 4.1 mEq/L (3.5-5.1); Sodium 133 mEq/L (136-145); eGFR For Non-African Americans > 60 (> 60)
[2018-02-10] MEDS: methylPREDNISolone 125 MG/2 ML VIAL IVP SCH (05:15)
[2018-02-10] MEDS: *HR* Heparin 5,000 UNIT/ML VIAL SQ SCH ×2 (05:15→17:59)
[2018-02-10] MEDS: Levofloxacin 750 MG/150 ML 750 MG/150 ML BAG IVPB SCH (05:16)
[2018-02-10] MEDS: Nicotine 21 MG PATCH.TD24 TD SCH (10:17)
[2018-02-10] MEDS: Nystatin SUSP 5 ML UD.LIQ PO SCH ×4 (10:18→22:25)
[2018-02-10] MEDS: Gabapentin 400 MG CAPSULE PO SCH ×3 (10:18→22:26)
[2018-02-10] MEDS: BuPROPion SR (12 HR) 150 MG TABLET PO SCH ×2 (10:19→22:26)
[2018-02-10] MEDS: Baclofen 10 MG TABLET PO SCH ×3 (10:19→22:25)
[2018-02-10] MEDS: Topiramate 100 MG TABLET PO SCH ×2 (10:20→22:26)
[2018-02-10] MEDS: Furosemide 40 MG TABLET PO SCH ×2 (10:20→16:06)
[2018-02-10] MEDS: Insulin LISPRO 300 UNITS/3 ML VIAL SQ SCH ×4 (10:21→22:23)
[2018-02-10] MEDS ORDERED: *HR* HYDROmorphone 2 MG/ML SYRINGE ONE (12:38)
[2018-02-10] MEDS: Nicotine 2 MG GUM BC PRN (12:59)
--- NOTE | 2018-02-10 13:43 | Internal Med Progress Note ---
Hospitalist Progress Note - Encounter Date of Encounter: 02/10/18 Time of Encounter: 09:00 - Subjective Interval History: pancho was seen and examined at bedside. reports that her SOB is improving. denies N/VD. has had no fever,chills, chest pain or palpitations. no events over night denies pain - Exam Vitals: Temp Pulse Resp BP Pulse Ox 98.5 F 78 17 113/69 97 02/10/18 12:18 02/10/18 12:18 02/10/18 12:18 02/10/18 12:18 02/10/18 12:18 Exam: General: Patient is alert, oriented, no acute distress, obese Head: atraumatic, normocephalic, Eye: normal appearance, PERRL, no scleral icterus, no conjunctival injection ENT: mucous membranes moist, normal external ear exam Neck: normal inspection, trachea midline, full ROM, no carotid bruits Chest: normal inspection, symmetric chest rise Respiratory: decreased breath sounds secondary to body habitus, Good respiratory effort. Bilateral breath sounds are clear without wheezing, crackles, or rhonchi. Cardiovascular: distant heart sounds secondary to body habitus, Regular rate and rhythm. s1 and s2 No clicks, rubs, gallops, or murmors. Abdomen: Bowel sounds present normoactive x-4 quadrants. Abdomen is soft, nondistended. no Epigastric tenderness. No guarding or rebound. No organomegaly noted, obese musculoskeletal: Spontaneously moving all extremities. no edema, no calf tenderness Skin: warm, dry, intact. Neuro: Alert and oriented x4. Sensation light touch intact. Cranial nerves 2- 12 is intact. Not aphasic, gait is steady, rapid hand movements intact, [id number] intact, Psych: Patient's affect is normal - Assessment and Plan (1) Pneumonia Current Visit: No Status: Acute Assessment and Plan: CAP WBC count on admission was 23.2 trending down MRSA nasal screen is negative viral respiratory panel negative continue [facility] will send sputum cx and urine antigens (2) Sepsis Current Visit: No Status: Acute Assessment and Plan: WBC cpount on admission was 23.2 , fever of 102.4 and HR 122 secondary to above, management as per above lactic acid WNL bloocx, sputum cx pending (3) Acute and chronic respiratory failure with hypoxia Current Visit: No Status: Acute Assessment and Plan: secondary to above management as per above (4) Acute exacerbation of chronic obstructive pulmonary disease (COPD) Current Visit: No Status: Acute Assessment and Plan: will continue with breathing treatments recieved IV steroids on admission started on prednisone taper rest of the management as above (5) Obesity Current Visit: No Status: Acute Assessment and Plan: was counseled on nutrition and weight loss (6) DVT prophylaxis Current Visit: No Status: Acute Assessment and Plan: heparin sc - Time Spent with Patient Total time spent is greater than 50% in coordination of care (as documented) at patient's floor/unit and/or counseling patient: Internal Medicine: Result - Labs CBC & Chem 7: 02/10/18 03:36 02/10/18 03:36 Labs: Short CBC 02/09/18 02/10/18 Range/Units 07:58 03:36 WBC 14.6 H 11.4 H (4.3-11.1) K/mcL Hgb 12.3 11.3 L (11.5-15.4) g/dL Hct 37.1 35.0 L (35.3-44.9) % Plt Count 253 253 (140-400) K/mcL Neutrophils # 12.8 H 9.7 H (1.6-8.9) K/mcL BMP 02/09/18 02/10/18 07:58 03:36 Sodium 134 L 133 L Potassium 4.7 4.1 Chloride 105 108 H Carbon Dioxide 19 L 18 L BUN 10 13 Creatinine 0.74 0.64 Glucose 193 H 338 H Calcium 8.7 9.0 Liver Function 02/09/18 Range/Units 07:58 Total Bilirubin 0.4 (0.3-1.0) mg/dL AST 10 L (13-39) Units/L ALT 21 (7-52) Units/L Alkaline Phosphatase 82 (34-104) Units/L Albumin 3.6 (3.5-5.7) g/dL Urine 02/09/18 Range/Units Unknown Urine Color Yellow (Yellow) Urine Clarity Clear (Clear) Urine pH 7.5 (5.0-8.0) pH Units Ur Specific [place] 1.019 (1.010-1.025) Urine Protein Negative (Neg-Trace) mg/dL Urine Glucose (UA) Normal (Normal) mg/dL Consult Discharge Plan - Plan Referrals: Juan Edgar [Primary Care Provider] - (1) Pneumonia Qualifiers: Pneumonia type: due to unspecified organism Laterality: unspecified la terality Lung location: unspecified part of lung Qualified Code(s): J18.9 - Pneumonia, unspecified organism (2) Sepsis Qualifiers: Sepsis type: sepsis due to unspecified organism Qualified Code(s): A41.9 - Sepsis, unspecified organism (5) Obesity Qualifiers: Body mass index: BMI 40.0-44.9
[2018-02-10] MEDS: Insulin DETEMIR 100 UNIT/ML X5UNITS SQ SCH (22:24)
[2018-02-10] MEDS: traZODone 50 MG TABLET PO SCH (22:26)
[2018-02-10] MEDS ORDERED: Nitroglycerin 0.4 MG TAB.SUBL SL PRN (22:45)
[2018-02-11] MEDS: GuaiFENesin/Pseudophedrine TABLET PO SCH ×2 (00:49→10:02)
[2018-02-11 03:52] LABS: Hematocrit 33.3 % (35.3-44.9); Mean Corpuscular Hemoglobin 29.5 pg (28.0-33.3); Mean Corpuscular Volume 89.3 fL (83.0-100.0); Platelet Count 277 K/mcL (140-400); Red Blood Count 3.73 M/mcL (3.82-4.97); Red Cell Distribution Width 15.5 % (11.5-14.5)
[2018-02-11] MEDS: Ipratropium/Albuterol Neb 3 ML IH SCH ×3 (04:07→11:35)
[2018-02-11 04:11] LABS: BUN/Creatinine Ratio 27 (6-26); Blood Urea Nitrogen 19 mg/dL (6-20); Calcium 8.7 mg/dL (8.6-10.3); Carbon Dioxide 23 mEq/L (23-29); Chloride 108 mEq/L (98-107); Glucose 116 mg/dL (70-105); Osmolality,Calculated 289 (280-300); Potassium 3.4 mEq/L (3.5-5.1); Sodium 138 mEq/L (136-145); eGFR For Non-African Americans > 60 (> 60)
[2018-02-11] MEDS: *HR* Heparin 5,000 UNIT/ML VIAL SQ SCH (06:07)
[2018-02-11] MEDS: Levofloxacin 750 MG/150 ML 750 MG/150 ML BAG IVPB SCH (06:08)
[2018-02-11 06:49] VITALS: BP 101/63
[2018-02-11] MEDS: Acetaminophen/Butalbital/CaffeineTABLET PO PRN (07:58)
--- NOTE | 2018-02-11 08:03 | Discharge Summary ---
- NOTES TO OUTPATIENT PROVIDER Notes to Outpatient Provider: follow up blood glucose as she is on steroids. needs to have OP pulmonolgy follow up Orders not resulted at time of discharge: Pending orders 02/09/18 Test Result, Urine [URIN] Stat Urinalysis Reflex Cult & Micro [URIN] Stat 02/09/18 01:20 Rapid Flu [Influenza A/B Antigen] [VIR] Stat 02/10/18 13:53 Culture,Sputum with Gram Stain [RM] Stat 02/10/18 14:58 Culture,Blood [BC] Stat 02/10/18 22:45 ECG 12 lead ECG [ECG] Stat Date of Encounter: 02/11/18 Time of Encounter: 07:54 - Discharge Diagnosis (1) Pneumonia Priority: Primary Status: Acute Qualifiers: Pneumonia type: due to unspecified organism Laterality: unspecified laterality Lung location: unspecified part of lung Qualified Code(s): J18.9 - Pneumonia, unspecified organism (2) Acute and chronic respiratory failure with hypoxia Priority: Secondary Status: Acute (3) Sepsis Priority: Secondary Status: Acute Qualifiers: Sepsis type: sepsis due to unspecified organism Qualified Code(s): A41.9 - Sepsis, unspecified organism (4) Acute exacerbation of chronic obstructive pulmonary disease (COPD) Priority: Secondary Status: Acute (5) Obesity Priority: Secondary Status: Acute Qualifiers: Body mass index: BMI 40.0-44.9 Qualified Code(s): E66.01 - Morbid (severe) obesity due to excess calories; Z68.41 - Body mass index (BMI) 40.0-44.9, adult (6) DVT prophylaxis Priority: Secondary Status: Acute Hospital course: Ms. Becerra is a 47 year old female with history of COPD on home oxygen presented to the emergency department with shortness of breath. on admission she hasd fever of 102.3, pulse of 111 respiratory rate of 20, with white blood cell count of 23.2 so she was admitted for sepsis secondary to pneumonia. She was started on IV antibiotics and IV fluids with resolution of her fever and tachycardia. Urine antigens were negative, blood cultures are no growth to date. Respiratory status continued to improve and returned back to baseline. Leukocytosis trended down to 11.4. she as discharged on oral Abx. she was counseled on importance of compliance to her medications and oxygen. a 7 days steroid taper was prescribed in addition to 5 days of oral Abx to complete 7 days course. she is to follow up with her primary care. she was counseled on nutrition and weight loss she was counseled extensively on smoking cessation and was provided with nicotine patch. 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 Discharge discussed with: patient, nurse, social work, case management Time spent discussing smoking cessation with patient: more than 10 minutes - Time Spent with Patient Total time spent providing and/or coordinating discharge services: Less than 30 minutes - Discharge Medications Prescriptions: Ipratropium/Albuterol Neb [Duoneb] 3 ml IH [id number] PRN #30 inhsol PRN Reason: Dyspnea Fluticasone/Salmeterol [Advair 250-50 Diskus] 1 each IH BID #1 blst.w.dev Guaifenesin [Mucinex] 600 mg PO DAILY 5 Days #5 tab.er.12h Levofloxacin [Levaquin] 750 mg PO DAILY 5 Days #5 tablet Nebulizer/Compressor [Muir Choice Nebulizer] 1 each MC Q4H PRN #1 each PRN Reason: Dyspnea Nicotine Patch [Nicoderm] 21 mg TD DAILY #30 patch.td24 predniSONE [PredniSONE] 10 mg PO DAILY 7 Days #21 tablet Home Medications: Acetaminophen/Butalbital/Caffe [Fioricet] 1 - 2 tab PO TID 12/07/15 [History] BuPROPion SR (12 HR) [Wellbutrin SR] 150 mg PO BID 12/07/15 [History] Furosemide [Lasix] 160 mg PO BID 12/07/15 [History] Levothyroxine [Synthroid] 50 mcg PO DAILY 12/07/15 [History] Omeprazole 40 mg PO DAILY 12/07/15 [History] Potassium Chloride [K-Tab ER] 40 meq PO TID 12/07/15 [History] Topiramate [Topamax] 200 mg PO BID 12/07/15 [History] TraZODone 150 mg PO HS 12/07/15 [History] Doxepin [Sinequan] 25 mg PO HS 04/20/16 [History] Albuterol Sulfate [Albuterol Inhaler] 1 puff IH Q4H PRN 90 Days inhaler 04/22/16 [Rx] metFORMIN [Glucophage] 500 mg PO BIDWM 06/21/16 [History] Atorvastatin [Lipitor] 40 mg PO HS 02/09/18 [History] Baclofen [Lioresal] 10 mg PO TID 02/09/18 [History] Gabapentin [Neurontin] 800 mg PO TID 02/09/18 [History] Lisinopril [Zestril] 10 mg PO DAILY 02/09/18 [History] Fluticasone/Salmeterol [Advair 250-50 Diskus] 1 each IH BID #1 blst.w.dev 02/11/18 [Rx] Guaifenesin [Mucinex] 600 mg PO DAILY 5 Days #5 tab.er.12h 02/11/18 [Rx] Ipratropium/Albuterol Neb [Duoneb] 3 ml IH [id number] PRN #30 inhsol 02/11/18 [Rx] Levofloxacin [Levaquin] 750 mg PO DAILY 5 Days #5 tablet 02/11/18 [Rx] Nebulizer/Compressor [Muir Choice Nebulizer] 1 each MC Q4H PRN #1 each 02/11/18 [Rx] Nicotine Patch [Nicoderm] 21 mg TD DAILY #30 patch.td24 02/11/18 [Rx] predniSONE [PredniSONE] 10 mg PO DAILY 7 Days #21 tablet 02/11/18 [Rx] Allergies/Adverse Reactions: Allergy/AdvReac Type Severity Reaction Status Date / Time aspirin AdvReac Gastrointestinal Verified 02/08/18 23:45 Upset naproxen AdvReac Gastrointestinal Verified 02/08/18 23:45 Upset Date of admission: 02/09/18 17:21 Primary care physician: Juan Edgar DO Consults: 02/10/18 14:34 Consult to Psychiatry [CONS] Routine Consulting Provider: Psychiatry [place] Reason consult: Psychosis - Constitutional Vitals: Temp Pulse Resp BP Pulse Ox 97.7 F 84 16 101/63 96 02/11/18 06:39 02/11/18 06:39 02/11/18 06:39 02/11/18 06:39 02/11/18 06:39 Exam: General: Patient is alert, oriented, no acute distress, obese speaks in full sentences Head: atraumatic, normocephalic, Eye: normal appearance, PERRL, no scleral icterus, no conjunctival injection ENT: mucous membranes moist, normal external ear exam Neck: normal inspection, trachea midline, full ROM, no carotid bruits Chest: normal inspection, symmetric chest rise Respiratory: decreased breath sounds secondary to body habitus, Good respiratory effort. Bilateral breath sounds are clear without wheezing, crackles, or rhonchi. Cardiovascular: distant heart sounds secondary to body habitus, Regular rate and rhythm. s1 and s2 No clicks, rubs, gallops, or murmors. Abdomen: Bowel sounds present normoactive x-4 quadrants. Abdomen is soft, nondistended. no Epigastric tenderness. No guarding or rebound. No organomegaly noted, obese musculoskeletal: Spontaneously moving all extremities. no edema, no calf tenderness Skin: warm, dry, intact. Neuro: Alert and oriented x4. Sensation light touch intact. Cranial nerves 2- 12 is intact. Not aphasic, gait is steady, rapid hand movements intact, [id number] intact, Psych: Patient's affect is normal - Patient Status Disposition: Home, Self-Care Condition: Fair Functional capacity at discharge: independent ambulation Overall status at discharge: patient is progressing back to baseline - Discharge Instructions Follow Up With: Juan Edgar DO [Primary Care Provider] - Torin Lyman MD [Partnered Physician] - - Diet and Activity Activity: increase activity as tolerated Diet: diabetic diet
[2018-02-11] MEDS ORDERED: predniSONE 20 MG TABLET PO SCH (09:00)
[2018-02-11] MEDS: Insulin LISPRO 300 UNITS/3 ML VIAL SQ SCH ×2 (10:00→14:46)
[2018-02-11] MEDS: Furosemide 40 MG TABLET PO SCH (10:01)
[2018-02-11] MEDS: Baclofen 10 MG TABLET PO SCH (10:02)
[2018-02-11] MEDS: Nystatin SUSP 5 ML UD.LIQ PO SCH ×2 (10:03→14:47)
[2018-02-11] MEDS: Gabapentin 400 MG CAPSULE PO SCH (10:03)
[2018-02-11] MEDS: Nicotine 21 MG PATCH.TD24 TD SCH (10:03)
[2018-02-11] MEDS: Topiramate 100 MG TABLET PO SCH (10:05)
[2018-02-11] MEDS: BuPROPion SR (12 HR) 150 MG TABLET PO SCH (10:05)
--- NOTE | 2018-02-11 12:10 | Event Note ---
Date of Encounter: 02/11/18 Time of Encounter: 12:07 I was informed by the nurse that she was given report that the patient was having visual hallucinations with bugs crawling on the ground over night. yesterday she was tearful as i spoke to her while was at bedside and reported that it was due to her not sleeping well from nightmares. home medications were restarted and she reported to me this morning that she slept well and denies overnight events and was eager to return home. Psych has been consulted for these fluctuations in mental status. she does have history of bipolar depression and is on multiple psych medications. I discussed the above plan with Dr. Yin who will see the patient. discharge pending psych clearance
--- NOTE | 2018-02-11 14:11 | Psychiatry Progress Note ---
Date of Encounter: 02/11/18 Time of Encounter: 12:45 Subjective Interval history: Psychiatric consultation note: 47-year-old female admitted for evaluation treatment of pneumonia with hypoxemia and sepsis. Patient was treated with Levaquin. Psychiatric consultation was requested regarding psychosis and hallucinations. Patient was reported to see rats in her room. Patient has a remote history of bipolar disorder and she is on medication including Wellbutrin and Topamax doxepin and BuSpar from her PCP. Currently she is not followed by psychiatrist and she is not seeing a counselor. Patient denied any depressive symptoms hallucination or suicidal ideation currently patient denies any visual hallucinations. Patient complain of not being able to sleep and was not given any medication to help her sleep and as a result she felt anxious. Review of Systems Psychiatric: Reports: visual hallucinations Results - Vital Signs Vital Signs: Temp Pulse Resp BP Pulse Ox 97.7 F 84 18 101/63 91 02/11/18 06:39 02/11/18 06:39 02/11/18 11:37 02/11/18 06:39 02/11/18 11:37 - Labs Labs: Laboratory Results - last 24 hr 02/10/18 02/10/18 02/10/18 08:07 12:25 16:27 WBC RBC Hgb Hct MCV MCH MCHC RDW Plt Count MPV Sodium Potassium Chloride Carbon Dioxide BUN Creatinine Est GFR ( Amer) Est GFR (Non-Af Amer) BUN/Creatinine Ratio Glucose POC Glucose 234 H 260 H 204 H Calculated Osmolality Calcium 02/10/18 02/11/18 02/11/18 21:41 03:29 03:29 WBC 11.4 H RBC 3.73 L Hgb 11.0 L Hct 33.3 L MCV 89.3 MCH 29.5 MCHC 33.0 RDW 15.5 H Plt Count 277 MPV 10.0 Sodium 138 Potassium 3.4 L Chloride 108 H Carbon Dioxide 23 BUN 19 Creatinine 0.71 Est GFR ( Amer) > 60 Est GFR (Non-Af Amer) > 60 BUN/Creatinine Ratio 27 H Glucose 116 H POC Glucose 168 H Calculated Osmolality 289 Calcium 8.7 02/11/18 02/11/18 06:44 12:13 WBC RBC Hgb Hct MCV MCH MCHC RDW Plt Count MPV Sodium Potassium Chloride Carbon Dioxide BUN Creatinine Est GFR ( Amer) Est GFR (Non-Af Amer) BUN/Creatinine Ratio Glucose POC Glucose 166 H 108 H Calculated Osmolality Calcium - Impressions ITS Impressions Chest X-Ray 02/09/18 23:48 IMPRESSION: Suspected central pulmonary vascular congestion. Increased bibasilar opacity is likely related to body habitus. Airspace disease is considered less likely. D/ / Mery Hernandez Cha, MD / Mery Hernandez Cha, MD Interpreting Provider: Mery Hernandez Cha, MD Assessment and Plan (1) Drug induced hallucinations Current visit: Yes Status: Acute Additional Plan: 1. Continue medical stabilization 2. Symptomatic treatment of drug-induced hallucinations with Seroquel 50 mg at bedtime when necessary 3. From psychiatric standpoint, patient is stable on current medication 4. When medically stable patient can be discharged. We will sign off on this consult. Consult Discharge Plan - Plan Instructions: Prednisone (By mouth), Guaifenesin (By mouth), Nicotine (Absorbed through the skin), Levofloxacin (By mouth), Ipratropium/Albuterol (By breathing), Fluticasone/Salmeterol (By breathing), Heart Failure (DC), Acute Respiratory Distress Syndrome (DC), Diabetes Mellitus Type 2 in Adults (DC), Chronic Obstructive Pulmonary Disease (DC), Pneumonia (DC) Referrals: Torin Lyman MD [Partnered Physician] - Juan Edgar DO [Primary Care Provider] - Prescriptions: Ipratropium/Albuterol Neb [Duoneb] 3 ml IH [id number] PRN #30 inhsol PRN Reason: Dyspnea Fluticasone/Salmeterol [Advair 250-50 Diskus] 1 each IH BID #1 blst.w.dev Guaifenesin [Mucinex] 600 mg PO DAILY 5 Days #5 tab.er.12h Levofloxacin [Levaquin] 750 mg PO DAILY 5 Days #5 tablet Nebulizer/Compressor [[place] Choice Nebulizer] 1 each MC Q4H PRN #1 each PRN Reason: Dyspnea Nicotine Patch [Nicoderm] 21 mg TD DAILY #30 patch.td24 predniSONE [PredniSONE] 10 mg PO DAILY 7 Days #21 tablet Psychiatry Exam - Constitutional Vitals: Temp Pulse Resp BP Pulse Ox 97.7 F 84 18 101/63 91 02/11/18 06:39 02/11/18 06:39 02/11/18 11:37 02/11/18 06:39 02/11/18 11:37 General appearance: age & developmentally appropriate, well-groomed, well- nourished, obese - Musculoskeletal Gait: normal Station: relaxed Strength & Tone: normal for patient - Psychiatric Patient Orientation: Yes Person, Yes Time, Yes Place Level of alertness: Alert Behavior: calm, cooperative Psychomotor activity: Normal Eye Contact: Maintains Eye Contact Mood Description: Euthymic/stable Affect description: congruent with mood, full range Speech Volume: Normal Speech pattern: normal rate, normal rhythm, normal tone, fluent, spontaneous Language & Vocabulary: consistent with education Thought Process: Linear, Goal Oriented Thought Content: No Suicidal ideation, No Homicidal ideation, No Overt delusions Perceptual Disturbances: No Auditory hallucinations, No Visual hallucinations Attention Span Ability: Capable of Focused Attention Memory Description: Grossly Intact Patient Reliability: Reliable Historian Fund of knowledge: Yes abstraction ability, Yes aware of current events Intelligence Estimate: Average Judgment: Limited Insight: Partial
--- NOTE | 2018-02-14 17:08 | Electrocardiograph Report ---
[address] [address] Test Date: 2018-02-10 Pat Name: Sarah Becerra Department: 111 Room: [facility]5 Gender: F [employer]: [id number] : 1970 Requested By: Reinaldo Chavez Order Number: [id number] Reading MD: Shawn Hassan Measurements Intervals [place] Rate: 97 P: 58 MD: 143 QRS: 54 QRSD: 98 T: 34 QT: 313 QTc: 368 Interpretive Statements SINUS RHYTHM POSSIBLE LEFT ATRIAL ENLARGEMENT LOW QRS VOLTAGE IN PRECORDIAL LEADS NONSPECIFIC T-WAVE ABNORMALITY Electronically Signed On 02-14-2018 17:07:13 EDT by Shawn Hassan
== END 2018-02-11 15:02 | disposition home or self-care (01) | DRG 871 ==
LOC: 2NENU 23:37 → EMEROOARM 23:37 → 2NENU 02-09 03:30
PROVIDERS: ADMIT Family Medicine; ATTEND Family Medicine

== ENCOUNTER 2020-07-18 14:28 | Inpatient (IN) ==
[2020-07-18] MEDS ORDERED: predniSONE 20 MG TABLET PO ONE (15:09)
[2020-07-18] MEDS ORDERED: Ipratropium/Albuterol Neb 3 ML IH ONE ×2 (15:09→16:45)
[2020-07-18] MEDS ORDERED: Isovue-370 500 ML BOTTLE IVP ONE (15:28)
[2020-07-18 15:31] LABS: Basophils # 0.1 K/mcL (0.0-0.2); Basophils % 0.9 %; Eosinophils # 0.1 K/mcL (0.0-0.6); Eosinophils % 1.2 %; Hematocrit 42.7 % (35.3-44.9); Hemoglobin 12.9 g/dL (11.5-15.4); Immature Platelets 13.7 % (1.1-6.1); Lymphocytes # 2.7 K/mcL (0.6-4.6); Lymphocytes % 23.7 %; Mean Corpuscular HGB Conc 30.2 g/dL (31.6-35.5); Mean Corpuscular Hemoglobin 23.9 pg (28.0-33.3); Mean Corpuscular Volume 79.2 fL (83.0-100.0); Mean Platelet Volume 10.4 fL (9.4-12.4); Monocytes # 0.6 K/mcL (0.0-1.3); Monocytes % 5.3 %; Neutrophils # 7.5 K/mcL (1.6-8.9); Nucleated Red Blood Cells 0.2 /100 WBC (0); Platelet Count 202 K/mcL (140-400); Red Blood Count 5.39 M/mcL (3.82-4.97); Red Cell Distribution Width 21.1 % (11.5-14.5); Segmented Neutrophils % 66.9 %; White Blood Count 11.2 K/mcL (4.3-11.1)
[2020-07-18 15:33] LABS: BUN/Creatinine Ratio 17 (6-26); Blood Urea Nitrogen 12 mg/dL (6-20); Calcium 8.6 mg/dL (8.6-10.3); Carbon Dioxide 28 mEq/L (23-29); Chloride 100 mEq/L (98-107); Glucose 248 mg/dL (70-105); Osmolality,Calculated 292 (280-300); Potassium 4.5 mEq/L (3.5-5.1); Sodium 137 mEq/L (136-145); Troponin I < 0.03 ng/mL (< 0.04); eGFR For African Americans > 60 (> 60); eGFR For Non-African Americans > 60 (> 60)
[2020-07-18 16:12] LABS: INR 1.1; Prothrombin Time 12.6 Seconds (9.4-12.1)
[2020-07-18 16:15] LABS: Activated Partial Thrombo Time 30.9 Seconds (26.0-36.0)
[2020-07-18] MEDS ORDERED: Morphine Sulfate 2 MG/ML SYRINGE IVP ONE (16:45)
[2020-07-18] MEDS ORDERED: Azithromycin 500 MG in 0.9 % Sodium Chloride 250 ML IVPB ONE (16:47)
[2020-07-18] MEDS: Nitroglycerin 0.4 MG TAB.SUBL SL SCH ×2 (17:27→19:30)
[2020-07-18] MEDS ORDERED: *HR* Dextrose 50 % in Water (Vial) 50 ML VIAL IVP PRN (18:04)
[2020-07-18] MEDS ORDERED: D5% in Water 1,000 ML IVC PRN (18:04)
[2020-07-18] MEDS ORDERED: Dextrose Gel 15 GM/37.5 ML TUBE PO PRN ×2 (18:04)
[2020-07-18] MEDS ORDERED: Perflutren Lipid Microsphere 1.3 ML in 0.9 % Sodium Chloride 8.7 ML IVP PRN (18:05)
[2020-07-18] MEDS ORDERED: Aspirin Enteric Coated 81 MG Tablet PO ONE (18:07)
[2020-07-18] MEDS ORDERED: MethylPREDNISolone 40 MG/ML VIAL IVP ONE (18:09)
[2020-07-18] MEDS ORDERED: Acetaminophen 325 MG TABLET PO PRN (18:22)
[2020-07-18] MEDS ORDERED: Naloxone 0.4 MG/ML INJ IVP PRN (18:22)
[2020-07-18] MEDS ORDERED: Prochlorperazine 10 MG/2 ML VIAL IVP PRN (18:25)
[2020-07-18] MEDS: Insulin LISPRO 300 UNITS/3 ML VIAL SUBQ SCH ×2 (19:29→20:12)
[2020-07-18] MEDS: Nicotine 21 MG PATCH.TD24 TD SCH (20:06)
[2020-07-18] MEDS: Baclofen 10 MG TABLET PO SCH (20:08)
[2020-07-18] MEDS: Topiramate 100 MG TABLET PO SCH (20:08)
[2020-07-18] MEDS: Gabapentin 400 MG CAPSULE PO SCH (20:09)
[2020-07-18] MEDS: traZODone 50 MG TABLET PO SCH (20:11)
[2020-07-18] MEDS: Diclofenac Sodium (DR) 75 MG TABLET.DR PO SCH (20:56)
[2020-07-18] MEDS: *HR* Heparin 5,000 UNIT/ML VIAL SQ SCH (21:04)
[2020-07-18] MEDS: Levalbuterol Neb 1.25 MG/3 ML IH SCH (22:42)
[2020-07-18] MEDS: methylPREDNISolone 125 MG/2 ML VIAL IVP SCH (23:13)
[2020-07-19] MEDS: Levalbuterol Neb 1.25 MG/3 ML IH SCH ×3 (03:06→16:16)
[2020-07-19 03:56] LABS: Hematocrit 41.7 % (35.3-44.9); Hemoglobin 12.4 g/dL (11.5-15.4); Mean Corpuscular HGB Conc 29.7 g/dL (31.6-35.5); Mean Corpuscular Hemoglobin 23.9 pg (28.0-33.3); Mean Corpuscular Volume 80.3 fL (83.0-100.0); Mean Platelet Volume 10.6 fL (9.4-12.4); Platelet Count 311 K/mcL (140-400); Red Blood Count 5.19 M/mcL (3.82-4.97); Red Cell Distribution Width 20.7 % (11.5-14.5); White Blood Count 12.8 K/mcL (4.3-11.1)
[2020-07-19 04:01] LABS: INR 1.2; Prothrombin Time 13.4 Seconds (9.4-12.1)
[2020-07-19 04:04] LABS: Activated Partial Thrombo Time 30.3 Seconds (26.0-36.0)
[2020-07-19 04:12] LABS: % Iron Saturation 3 % (15-50); BUN/Creatinine Ratio 19 (6-26); Blood Urea Nitrogen 15 mg/dL (6-20); Calcium 8.8 mg/dL (8.6-10.3); Carbon Dioxide 30 mEq/L (23-29); Chloride 101 mEq/L (98-107); Chol/HDL Ratio 2.5 (0-4.9); Cholesterol 121 mg/dL (< 200); Glucose 265 mg/dL (70-105); HDL Cholesterol 48 mg/dL (40-59); Iron 13 mcg/dL (50-170); LDL Cholesterol,Calculated 59 mg/dL (< 100); Magnesium 2.1 mg/dL (1.6-2.6); Osmolality,Calculated 294 (280-300); Potassium 5.1 mEq/L (3.5-5.1); Sodium 137 mEq/L (136-145); Transferrin 339 mg/dL (203-362); Triglycerides 69 mg/dL (< 150); eGFR For African Americans > 60 (> 60); eGFR For Non-African Americans > 60 (> 60)
[2020-07-19 04:24] LABS: Bilirubin,Urine Negative (Negative); Blood,Urine Negative (Negative); Clarity,Urine Clear (Clear); Color,Urine Light-Yellow (Yellow); Glucose,Urine (UA) 500 mg/dL (Normal); Ketones,Urine Negative (Negative); Leukocyte Esterase,Urine Negative (Negative); Mucus,Urine Few per lpf (None-Few); Nitrite,Urine Negative (Negative); Protein,Urine Trace mg/dL (Neg-Trace); RBC,Urine 0-3 per hpf (0-3); Specific Gravity,Urine > 1.030 (1.010-1.025); Squamous Epithelial Cell,Urine Few per hpf (None-Few); Urobilinogen,Urine Normal (Normal); WBC,Urine 0-3 per hpf (0-3)
[2020-07-19 04:26] LABS: Thyroid Stimulating Hormone 0.613 mcIU/mL (0.340-5.600)
[2020-07-19 04:30] LABS: Ferritin 24 ng/mL (10-120)
[2020-07-19 04:35] LABS: Folate 4.9 ng/mL (3.0-16.0)
[2020-07-19 05:07] LABS: Estimated Average Glucose 180 mg/dl; Hemoglobin A1C 7.9 %
[2020-07-19] MEDS: *HR* Heparin 5,000 UNIT/ML VIAL SQ SCH ×3 (05:55→20:47)
[2020-07-19] MEDS ORDERED: Regadenoson 0.4 MG/5 ML SYRINGE IVP ONE (06:20)
[2020-07-19] MEDS: Insulin LISPRO 300 UNITS/3 ML VIAL SUBQ SCH ×4 (07:30→20:46)
[2020-07-19] MEDS: Gabapentin 400 MG CAPSULE PO SCH ×3 (10:26→20:45)
[2020-07-19] MEDS: Loratadine 10 MG TABLET PO SCH (10:26)
[2020-07-19] MEDS: Venlafaxine XR (24 HR) 75 MG CAP.ER.24H PO SCH (10:26)
[2020-07-19] MEDS: Topiramate 100 MG TABLET PO SCH ×2 (10:26→20:45)
[2020-07-19] MEDS: methylPREDNISolone 125 MG/2 ML VIAL IVP SCH ×3 (10:27→23:50)
[2020-07-19] MEDS: Bumetanide 1 MG TABLET PO SCH (10:27)
[2020-07-19] MEDS: lisinopriL 10 MG TABLET PO SCH (10:27)
[2020-07-19] MEDS: Baclofen 10 MG TABLET PO SCH ×3 (10:27→20:45)
[2020-07-19] MEDS: Nicotine 21 MG PATCH.TD24 TD SCH (10:28)
[2020-07-19] MEDS: Diclofenac Sodium (DR) 75 MG TABLET.DR PO SCH ×2 (10:32→20:45)
[2020-07-19] MEDS: Azithromycin 500 MG in 0.9 % Sodium Chloride 250 ML IVPB SCH (16:47)
[2020-07-19] MEDS: Furosemide 40 MG TABLET PO SCH (16:47)
[2020-07-19] MEDS: Nystatin POWDER 30 GM BOTTLE TP SCH ×2 (18:32→20:46)
[2020-07-19] MEDS: traZODone 50 MG TABLET PO SCH (20:49)
[2020-07-19] MEDS ORDERED: FUROSEMIDE 80 MG PO SCH (21:00)
[2020-07-19] MEDS: Ipratropium/Albuterol Neb 3 ML IH SCH ×2 (22:00→22:05)
[2020-07-19] MEDS: Budesonide/Formoterol 160/4.5 1 PUFF INH IH SCH (22:01)
[2020-07-19] MEDS ORDERED: Insulin Human Regular 10 UNIT in 0.9 % Sodium Chloride 10 ML IV ONE (22:18)
[2020-07-20] MEDS: Ipratropium/Albuterol Neb 3 ML IH SCH ×6 (03:01→23:32)
[2020-07-20] MEDS: *HR* Heparin 5,000 UNIT/ML VIAL SQ SCH ×3 (05:33→21:23)
[2020-07-20 05:47] LABS: Hematocrit 40.4 % (35.3-44.9); Mean Corpuscular HGB Conc 29.7 g/dL (31.6-35.5); Mean Corpuscular Hemoglobin 23.7 pg (28.0-33.3); Mean Corpuscular Volume 79.8 fL (83.0-100.0); Mean Platelet Volume 10.1 fL (9.4-12.4); Platelet Count 340 K/mcL (140-400); Red Blood Count 5.06 M/mcL (3.82-4.97); Red Cell Distribution Width 20.4 % (11.5-14.5); White Blood Count 14.6 K/mcL (4.3-11.1)
[2020-07-20 06:06] LABS: BUN/Creatinine Ratio 25 (6-26); Blood Urea Nitrogen 17 mg/dL (6-20); Calcium 9.1 mg/dL (8.6-10.3); Carbon Dioxide 27 mEq/L (23-29); Chloride 100 mEq/L (98-107); Glucose 319 mg/dL (70-105); Osmolality,Calculated 292 (280-300); Potassium 4.6 mEq/L (3.5-5.1); Sodium 134 mEq/L (136-145); eGFR For African Americans > 60 (> 60); eGFR For Non-African Americans > 60 (> 60)
[2020-07-20] MEDS: Venlafaxine XR (24 HR) 75 MG CAP.ER.24H PO SCH (09:13)
[2020-07-20] MEDS: Topiramate 100 MG TABLET PO SCH ×2 (09:13→19:25)
[2020-07-20] MEDS: Gabapentin 400 MG CAPSULE PO SCH ×3 (09:13→19:25)
[2020-07-20] MEDS: Loratadine 10 MG TABLET PO SCH (09:13)
[2020-07-20] MEDS: Bumetanide 1 MG TABLET PO SCH (09:13)
[2020-07-20] MEDS: Diclofenac Sodium (DR) 75 MG TABLET.DR PO SCH ×2 (09:13→21:21)
[2020-07-20] MEDS: Baclofen 10 MG TABLET PO SCH ×3 (09:13→19:25)
[2020-07-20] MEDS: Nicotine 21 MG PATCH.TD24 TD SCH (09:13)
[2020-07-20] MEDS: lisinopriL 10 MG TABLET PO SCH (09:13)
[2020-07-20] MEDS: Furosemide 40 MG TABLET PO SCH ×2 (09:14→15:02)
[2020-07-20] MEDS: Insulin LISPRO 300 UNITS/3 ML VIAL SUBQ SCH ×4 (09:14→19:27)
[2020-07-20] MEDS: methylPREDNISolone 125 MG/2 ML VIAL IVP SCH ×3 (09:14→23:41)
[2020-07-20] MEDS: Nystatin POWDER 30 GM BOTTLE TP SCH ×3 (09:23→19:26)
[2020-07-20] MEDS: Budesonide/Formoterol 160/4.5 1 PUFF INH IH SCH ×2 (10:55→19:32)
[2020-07-20] MEDS ORDERED: Insulin LISPRO 300 UNITS/3 ML VIAL SUBQ SCH ×2 (16:54→16:55)
[2020-07-20] MEDS ORDERED: Insulin Human Regular 20 UNIT in 0.9 % Sodium Chloride 10 ML IV ONE (16:54)
[2020-07-20] MEDS: Insulin DETEMIR 100 UNIT/ML X5UNITS SUBQ SCH ×2 (17:37→21:22)
[2020-07-20] MEDS: Azithromycin 500 MG in 0.9 % Sodium Chloride 250 ML IVPB SCH (17:38)
[2020-07-20] MEDS ORDERED: Fluconazole 100 MG TABLET PO ONE (19:03)
[2020-07-20] MEDS: traZODone 50 MG TABLET PO SCH (19:25)
[2020-07-21] MEDS: Ipratropium/Albuterol Neb 3 ML IH SCH ×3 (03:38→11:27)
[2020-07-21] MEDS: *HR* Heparin 5,000 UNIT/ML VIAL SQ SCH (05:58)
[2020-07-21] MEDS: Budesonide/Formoterol 160/4.5 1 PUFF INH IH SCH (07:30)
[2020-07-21 07:47] VITALS: BP 110/73
[2020-07-21] MEDS: Diclofenac Sodium (DR) 75 MG TABLET.DR PO SCH (08:15)
[2020-07-21] MEDS: Gabapentin 400 MG CAPSULE PO SCH (08:16)
[2020-07-21] MEDS: Bumetanide 1 MG TABLET PO SCH (08:16)
[2020-07-21] MEDS: Furosemide 40 MG TABLET PO SCH (08:16)
[2020-07-21] MEDS: lisinopriL 10 MG TABLET PO SCH (08:16)
[2020-07-21] MEDS: Venlafaxine XR (24 HR) 75 MG CAP.ER.24H PO SCH (08:16)
[2020-07-21] MEDS: Baclofen 10 MG TABLET PO SCH (08:16)
[2020-07-21] MEDS: Insulin LISPRO 300 UNITS/3 ML VIAL SUBQ SCH ×2 (08:17→11:31)
[2020-07-21] MEDS: Loratadine 10 MG TABLET PO SCH (08:17)
[2020-07-21] MEDS: Topiramate 100 MG TABLET PO SCH (08:17)
[2020-07-21] MEDS: methylPREDNISolone 125 MG/2 ML VIAL IVP SCH (08:18)
[2020-07-21] MEDS: Nicotine 21 MG PATCH.TD24 TD SCH (08:19)
[2020-07-21] MEDS: Nystatin POWDER 30 GM BOTTLE TP SCH (08:19)
[2020-07-21 08:53] LABS: Basophils # 0.1 K/mcL (0.0-0.2); Basophils % 0.4 %; Immature Granulocytes % 1.9 % (0-4); Lymphocytes # 1.7 K/mcL (0.6-4.6); Lymphocytes % 12.4 %; Mean Corpuscular HGB Conc 29.3 g/dL (31.6-35.5); Mean Corpuscular Hemoglobin 23.6 pg (28.0-33.3); Mean Corpuscular Volume 80.6 fL (83.0-100.0); Mean Platelet Volume 10.1 fL (9.4-12.4); Monocytes # 0.6 K/mcL (0.0-1.3); Monocytes % 3.9 %; Neutrophils # 11.4 K/mcL (1.6-8.9); Platelet Count 369 K/mcL (140-400); Red Blood Count 5.09 M/mcL (3.82-4.97); Red Cell Distribution Width 20.6 % (11.5-14.5); Segmented Neutrophils % 81.4 %
[2020-07-21 09:00] LABS: BUN/Creatinine Ratio 36 (6-26); Blood Urea Nitrogen 31 mg/dL (6-20); Calcium 8.7 mg/dL (8.6-10.3); Carbon Dioxide 31 mEq/L (23-29); Chloride 100 mEq/L (98-107); Glucose 267 mg/dL (70-105); Osmolality,Calculated 300 (280-300); Potassium 5.2 mEq/L (3.5-5.1); Sodium 137 mEq/L (136-145); eGFR For African Americans > 60 (> 60); eGFR For Non-African Americans > 60 (> 60)
[2020-07-21] MEDS ORDERED: Insulin DETEMIR 100 UNIT/ML X5UNITS SUBQ SCH (09:00)
== END 2020-07-21 11:57 | disposition home or self-care (01) | DRG 190 ==
LOC: 3BNU 14:28 → EMEROOARM 14:28 → SUATTDRO 17:50 → 3BNU 19:02
PROVIDERS: ADMIT General Practice; ATTEND Student in an Organized Health Care Education/Training Program

== ENCOUNTER 2021-05-21 10:35 | Observation (INO) ==
[2021-05-21] MEDS ORDERED: Isovue-370 500 ML BOTTLE IVP ONE (10:51)
[2021-05-21 11:03] LABS: Hematocrit 48.1 % (35.3-44.9); Hemoglobin 14.3 g/dL (11.5-15.4); Mean Corpuscular HGB Conc 29.7 g/dL (31.6-35.5); Mean Corpuscular Hemoglobin 24.7 pg (28.0-33.3); Mean Corpuscular Volume 83.1 fL (83.0-100.0); Mean Platelet Volume 9.5 fL (9.4-12.4); Platelet Count 412 K/mcL (140-400); Red Blood Count 5.79 M/mcL (3.82-4.97); Red Cell Distribution Width 19.9 % (11.5-14.5)
[2021-05-21 11:10] LABS: INR 1.1; Prothrombin Time 12.2 Seconds (9.4-12.1)
[2021-05-21 11:13] LABS: Activated Partial Thrombo Time 43.7 Seconds (26.0-36.0)
[2021-05-21] MEDS ORDERED: Aspirin 81 MG TAB.CHEW PO ONE (11:16)
[2021-05-21 11:19] LABS: Alanine Aminotransferase 17 Units/L (7-52); Albumin 4.1 g/dL (3.5-5.7); Albumin/Globulin Ratio 1.1 (1.1-2.2); Alkaline Phosphatase 117 Units/L (34-104); Aspartate Amino Transferase 10 Units/L (13-39); BUN/Creatinine Ratio 10 (6-26); Bilirubin,Direct 0.1 mg/dL (0.0-0.2); Bilirubin,Indirect 0.1 mg/dL (0.0-1.0); Bilirubin,Total 0.2 mg/dL (0.3-1.0); Blood Urea Nitrogen 8 mg/dL (6-20); Calcium 9.4 mg/dL (8.6-10.3); Carbon Dioxide 27 mEq/L (23-29); Chloride 99 mEq/L (98-107); Globulin 3.6 g/dL (2.4-3.5); Glucose 149 mg/dL (70-105); Osmolality,Calculated 283 (280-300); Sodium 136 mEq/L (136-145); Total Protein 7.7 g/dL (6.4-8.9); Troponin I < 0.03 ng/mL (< 0.04); eGFR For African Americans > 60 (> 60); eGFR For Non-African Americans > 60 (> 60)
[2021-05-21] MEDS ORDERED: Naloxone 0.4 MG/ML INJ IVP PRN (11:41)
[2021-05-21] MEDS ORDERED: Ondansetron 4 MG/2 ML VIAL IVP PRN (11:41)
[2021-05-21] MEDS ORDERED: Dextrose Gel 15 GM/37.5 ML TUBE PO PRN ×2 (11:45)
[2021-05-21] MEDS ORDERED: D5% in Water 1,000 ML IVC PRN (11:45)
[2021-05-21] MEDS ORDERED: *HR* Dextrose 50 % in Water (Syg) 50 ML SYRINGE IVP PRN (11:45)
[2021-05-21] MEDS ORDERED: Perflutren Lipid Microsphere 1.3 ML in 0.9 % Sodium Chloride 8.7 ML IVP PRN (11:54)
[2021-05-21 17:35] LABS: Adenovirus Not Detected (Not Detect); Bordetella Pertussis Not Detected (Not Detect); Chlamydophila pneumoniae Not Detected (Not Detect); Coronavirus 229E Not Detected (Not Detect); Coronavirus HKU1 Not Detected (Not Detect); Coronavirus NL63 Not Detected (Not Detect); Coronavirus OC43 Not Detected (Not Detect); Human Metapneumovirus Not Detected (Not Detect); Human Rhinovirus/Enterovirus Not Detected (Not Detect); Influenza A Subtype 2009 H1 Not Detected (Not Detect); Influenza B Not Detected (Not Detect); Mycoplasma pneumoniae Not Detected (Not Detect); Parainfluenza Virus 1 Not Detected (Not Detect); Parainfluenza Virus 2 Not Detected (Not Detect); Parainfluenza Virus 3 Not Detected (Not Detect); Parainfluenza Virus 4 Not Detected (Not Detect); Respiratory Syncytial Virus Not Detected (Not Detect); SARS-CoV-2 Not Detected (Not Detect)
[2021-05-21] MEDS: Gabapentin 400 MG CAPSULE PO SCH ×2 (17:58→21:35)
[2021-05-21] MEDS: Insulin LISPRO 300 UNITS/3 ML VIAL SUBQ SCH (17:59)
[2021-05-21] MEDS ORDERED: Insulin LISPRO 300 UNITS/3 ML VIAL SUBQ SCH (21:00)
[2021-05-22 02:59] LABS: Basophils # 0.1 K/mcL (0.0-0.2); Basophils % 0.5 %; Eosinophils # 0.2 K/mcL (0.0-0.6); Eosinophils % 1.9 %; Hematocrit 43.7 % (35.3-44.9); Immature Granulocytes % 1.2 % (0-4); Lymphocytes % 18.4 %; Mean Corpuscular HGB Conc 29.7 g/dL (31.6-35.5); Mean Corpuscular Hemoglobin 25.1 pg (28.0-33.3); Mean Corpuscular Volume 84.4 fL (83.0-100.0); Mean Platelet Volume 9.6 fL (9.4-12.4); Monocytes # 0.7 K/mcL (0.0-1.3); Monocytes % 6.9 %; Neutrophils # 7.7 K/mcL (1.6-8.9); Platelet Count 378 K/mcL (140-400); Red Blood Count 5.18 M/mcL (3.82-4.97); Red Cell Distribution Width 19.6 % (11.5-14.5); Segmented Neutrophils % 71.1 %; White Blood Count 10.8 K/mcL (4.3-11.1)
[2021-05-22 03:25] LABS: BUN/Creatinine Ratio 10 (6-26); Blood Urea Nitrogen 7 mg/dL (6-20); Calcium 8.9 mg/dL (8.6-10.3); Carbon Dioxide 27 mEq/L (23-29); Chloride 103 mEq/L (98-107); Glucose 136 mg/dL (70-105); Osmolality,Calculated 280 (280-300); Phosphorous 3.7 mg/dL (2.7-4.5); Potassium 3.8 mEq/L (3.5-5.1); Sodium 135 mEq/L (136-145); eGFR For African Americans > 60 (> 60); eGFR For Non-African Americans > 60 (> 60)
[2021-05-22] MEDS: Levalbuterol Neb 1.25 MG/3 ML IH SCH ×4 (05:01→15:12)
[2021-05-22] MEDS ORDERED: Aspirin 81 MG TAB.CHEW PO SCH (09:00)
[2021-05-22] MEDS: Insulin LISPRO 300 UNITS/3 ML VIAL SUBQ SCH ×2 (09:33→11:44)
[2021-05-22] MEDS: Gabapentin 400 MG CAPSULE PO SCH (09:33)
[2021-05-22 11:37] VITALS: BP 117/74; PULSE 71; TEMP 97.6; O2SAT 94
== END 2021-05-22 15:32 | disposition home or self-care (01) ==
LOC: EMEROOARM 10:35 → 3BNU 10:35
PROVIDERS: ADMIT Student in an Organized Health Care Education/Training Program; ATTEND Student in an Organized Health Care Education/Training Program